=== PATIENT | female | born 1950 | race Caucasian/White ===

== ENCOUNTER 2016-11-29 10:29 | Emergency (ER) | payer BC, OTHER ==
[2016-11-29 10:37] VITALS: BP 125/57
--- NOTE | 2016-11-29 10:50 | ER Document Report ---
ED Medical Screen (RME) - General Stated Complaint: BACK PAIN Mode of Arrival: Ambulatory Information source: Patient Notes: Patient complains of low back pain, right lateral side of abdomen pain for the past 4 days. Patient reports nausea and last week that has resolved today. Patient reports cold symptoms that started last week with cough that continues today. Patient denies any urinary symptoms. hx: Chronic back pain I have greeted and performed a rapid initial assessment of this patient. A comprehensive ED assessment and evaluation of the patient, analysis of test results and completion of the medical decision making process will be conducted by additional ED providers. - Related Data Allergies/Adverse Reactions: Penicillins Allergy (Verified 11/29/16 10:47) Physical Exam - Vital signs Vitals: Temp Pulse Resp BP Pulse Ox 99.3 F 93 21 H 125/57 L 88 L 11/29/16 10:36 11/29/16 10:36 11/29/16 10:36 11/29/16 10:36 11/29/16 10:36 - Abdominal Tenderness: Tender - Right lateral side of abdomen Course - Vital Signs Vital signs: Temp Pulse Resp BP Pulse Ox 99.3 F 93 21 H 125/57 L 88 L 11/29/16 10:36 11/29/16 10:36 11/29/16 10:36 11/29/16 10:36 11/29/16 10:36
[2016-11-29 11:22] LABS: ABSOLUTE EOSINOPHILS # (AUTO) 0.1 10^3/uL (0.0-0.6); ABSOLUTE LYMPHOCYTES (AUTO) 0.8 10^3/uL (0.5-4.7); ABSOLUTE MONOCYTES (AUTO) 0.4 10^3/uL (0.1-1.4); ABSOLUTE NEUT (AUTO) 1.9 10^3/uL (1.7-8.2); BASOPHILS % (AUTO) 1.5 % (0-2); EOSINOPHILS % (AUTO) 1.6 % (0-6); HEMATOCRIT 40.6 % (36.0-47.0); HEMOGLOBIN 13.4 g/dL (12.0-15.5); HGB HCT DIFFERENCE -0.4; MEAN CORPUSCULAR HEMOGLOBIN 28.8 pg (27.0-33.4); MEAN CORPUSCULAR HGB CONC 32.9 g/dL (32.0-36.0); MEAN CORPUSCULAR VOLUME 87 fl (80-97); MONOCYTES % (AUTO) 12.9 % (3-13); RED BLOOD COUNT 4.65 10^6/uL (3.72-5.28); RED CELL DISTRIBUTION WIDTH 14.7 % (11.5-14.0); WHITE BLOOD COUNT 3.2 10^3/uL (4.0-10.5)
[2016-11-29 11:26] LABS: AMORPHOUS SEDIMENT,URINE TRACE /HPF; APPEARANCE,URINE TURBID; BILIRUBIN,URINE NEGATIVE (NEGATIVE); GLUCOSE, URINE NEGATIVE (NEGATIVE); KETONES,URINE NEGATIVE (NEGATIVE); LEUKOCYTE ESTERASE,URINE NEGATIVE (NEGATIVE); NITRITE,URINE NEGATIVE (NEGATIVE); PROTEIN,URINE NEGATIVE (NEGATIVE); UROBILINOGEN,URINE NEGATIVE mg/dL (<2.0)
[2016-11-29 11:32] LABS: ALANINE AMINOTRANSFERASE 48 U/L (9-52); ALBUMIN 4.1 g/dL (3.5-5.0); ALKALINE PHOSPHATASE 58 U/L (38-126); ANION GAP 11 (5-19); ASPARTATE AMINO TRANSFERASE 31 U/L (14-36); BILIRUBIN,TOTAL 0.5 mg/dL (0.2-1.3); BLOOD UREA NITROGEN 14 mg/dL (7-20); CALCIUM 8.9 mg/dL (8.4-10.2); CARBON DIOXIDE 27 mmol/L (22-30); CHLORIDE 98 mmol/L (98-107); CREATININE RESULT 0.83 mg/dL (0.52-1.25); GLUCOSE 123 mg/dL (75-110); LIPASE 21.4 U/L (23-300); POTASSIUM 4.4 mmol/L (3.6-5.0); SODIUM 135.6 mmol/L (137-145); TOTAL PROTEIN 6.6 g/dL (6.3-8.2)
[2016-11-29] MEDS ORDERED: CYCLOBENZAPRINE HCL 10 MG TABLET PO ONE (13:00)
[2016-11-29] MEDS ORDERED: ACETAMINOPHEN 325 MG TABLET PO ONE (13:00)
--- NOTE | 2016-11-29 13:03 | ER Document Report ---
ED General - General Chief Complaint: Abdominal Pain Stated Complaint: BACK PAIN Mode of Arrival: Ambulatory Notes: Patient is a 66-year-old female presents emergency Department complaining of cough, headache, fevers and chills and then nonoperative the past 3-4 weeks. She also admits to worsening low back pain and right flank pain for the past 4 days with associated nausea. She denies any urinary symptoms including hematuria. Has had normal bowel movements. Patient states she is a history of chronic back pain. PCP is Dr. Keane and states very. Past medical history significant for chronic low back pain, kidney stones, asthma, COPD, hypertension Current daily smoker TRAVEL OUTSIDE OF THE [place] IN LAST 30 DAYS: No - Related Data Allergies/Adverse Reactions: Penicillins Allergy (Verified 11/29/16 10:47) Past Medical History - General Information source: Patient - Social History Smoking Status: Current Every Day Smoker Chew tobacco use (# tins/day): No Frequency of alcohol use: None Drug Abuse: None Family History: Reviewed & Not Pertinent Patient has suicidal ideation: No Patient has homicidal ideation: No Renal/ Medical History: Denies: Hx Peritoneal Dialysis Review of Systems - Review of Systems Constitutional: No symptoms reported EENT: No symptoms reported Cardiovascular: No symptoms reported Respiratory: Cough Gastrointestinal: Nausea Genitourinary: No symptoms reported Female Genitourinary: No symptoms reported Musculoskeletal: See HPI Skin: No symptoms reported Hematologic/Lymphatic: No symptoms reported Neurological/Psychological: No symptoms reported Physical Exam - Vital signs Vitals: Temp Pulse Resp BP Pulse Ox 99.3 F 93 21 H 125/57 L 96 11/29/16 10:36 11/29/16 10:36 11/29/16 10:36 11/29/16 10:36 11/29/16 10:36 - Notes Notes: PHYSICAL EXAM GENERAL: Alert, interacts well. HEAD: Normocephalic, atraumatic. EYES: Pupils equal, round, and reactive to light. Extraocular movements intact. ENT: Oral mucosa moist, tongue midline. NECK: Full range of motion. Supple. Trachea midline. LUNGS: Clear to auscultation bilaterally, no wheezes, rales, or rhonchi. No respiratory distress. HEART: Regular rate and rhythm. No murmurs, gallops, or rubs. ABDOMEN: Soft, nondistended, nontender. No guarding, rebound, or rigidity.. Bowel sounds present in all 4 quadrants. EXTREMITIES: Moves all 4 extremities spontaneously. No edema, radial and dorsalis pedis pulses 2/4 bilaterally. No cyanosis. Back: Lumbar and thoracic paraspinous muscle tenderness with positive CVA tenderness on the right. NEUROLOGICAL: Alert and oriented x3. Normal speech. PSYCH: Normal affect, normal mood. SKIN: Warm, dry, normal turgor. No rashes or lesions noted. Course - Re-evaluation Re-evalutation: 11/29/16 14:17 Patient is a 66-year-old female presents emergency Department complaining of multitude of symptoms but with new onset right flank pain. She does have a history of chronic back pain and also has a history of renal stones. Workup was essentially negative but did reveal mild hematuria. Patient denies any urinary symptoms. Patient was given Tylenol and Flexeril which she states resolved her back pain. KUB reveals calcifications around the uterus or bladder been no evidence of stone. At this time patient feels that her symptoms are improved and she would like to go home. Patient is stable for discharge and can follow-up with her primary care provider - Vital Signs Vital signs: Temp Pulse Resp BP Pulse Ox 99.3 F 93 21 H 125/57 L 96 11/29/16 10:36 11/29/16 10:36 11/29/16 10:36 11/29/16 10:36 11/29/16 10:36 - Laboratory Result Diagrams: 11/29/16 11:00 11/29/16 11:00 Laboratory results interpreted by me: 11/29/16 11/29/16 11/29/16 11:00 11:00 11:00 WBC 3.2 L RDW 14.7 H Plt Count 109 L Sodium 135.6 L Glucose 123 H Lipase 21.4 L Urine Blood SMALL H - Diagnostic Test Radiology reviewed: Image reviewed, Reports reviewed Discharge - Discharge Clinical Impression: Back pain Qualifiers: Back pain location: low back pain Chronicity: acute Back pain laterality: right Sciatica presence: without sciatica Qualified Code(s): M54.5 - Low back pain Condition: Good Disposition: HOME, SELF-CARE Instructions: Acetaminophen, Stretching Exercises for the Back ([facility]) Additional Instructions: LOW BACK PAIN: Three out of every four people will have an episode of disabling back pain during their lifetime. Most commonly the pain is due to straining of the muscles and ligaments in the low back. Usual treatment includes: (1) Rest on a firm surface. Avoid lying on your stomach. (2) Ice pack the painful area. After a few days, gentle heat may be used intermittently to relax the area, or ice packs can be continued. (3) Medication may be needed -- muscle relaxers and antiinflammatory medicines are commonly used. (4) As the back improves, exercises are prescribed to strengthen the back and abdominal muscles. Your doctor will advise you on the proper care for your back at each stage in your recovery. You may be better in a few days -- or healing may take several weeks. If new symptoms of a "herniated disc" (radiation of pain, numbness, or tingling down the back of the leg or weakness in the leg) occur, you should be re-examined. Further testing may be necessary. MUSCLE RELAXERS: Muscle relaxing medications are usually prescribed for acute muscle spasm or injury to the neck and back. They are often combined with antiinflammatory pain medication for increased relief. You may stop the muscle relaxer when the pain and stiffness have improved. Start the medication again if spasms recur. Muscle relaxers may cause drowsiness, especially with the first dose. Do not operate machinery or drive while under the effects of the medication. Most muscle relaxers last up to 24 hours. Do not combine the medication with alcohol. ICE PACKS: Apply ice packs frequently against the painful area. Many different schedules are recommended, such as "20 minutes on, 20 minutes off" or "one hour ice, two hours rest." If you need to work, you may need to go longer between ice treatments. You should plan to have the area ice packed AT LEAST one fourth of the time. The ice should be applied over the wrap, tape, or splint, or over a layer of cloth -- not directly against the skin. Some ice bags have a built-in cloth and can be put directly on the skin. WARM PACKS: After approximately two days, apply gentle heat (such as a heating pad or hot water bottle) for about 20 to 30 minutes about every two hours -- at least four times daily. Warmth and elevation will help you make a more rapid recovery , and will ease the pain considerably. Do not use HOT heat, and never apply heat for longer than 30 minutes. The continuous heat can invisibly damage skin and muscles -- even when no burn is seen on the surface. Damaged muscles can make you MORE sore. FOLLOW-UP CARE: If you have been referred to a physician for follow-up care, call the physician s office for an appointment as you were instructed or within the next two days. If you experience worsening or a significant change in your symptoms, notify the physician immediately or return to the Emergency Department at any time for re-evaluation. Prescriptions: Cyclobenzaprine HCl [Flexeril 5 mg Tablet] 5 mg PO TIDP PRN #15 tablet PRN Reason: Forms: Smoking Cessation Education Referrals: LYNNE KEANE MD [Primary Care Provider] - Follow up as needed
== END 2016-11-29 14:53 | disposition home or self-care (01) ==
LOC: ER 10:29
DX: M54.5 Low back pain (principal); R10.9 Unspecified abdominal pain; M54.9 Dorsalgia, unspecified; R05 Cough; R51 Headache; R50.9 Fever, unspecified; F17.210 Nicotine dependence, cigarettes, uncomplicated
CPT/HCPCS: 36415; 71020; 74000; 80053; 81001; 83690; 85025; 99284

== ENCOUNTER 2017-01-10 16:35 | Emergency (ER) | payer BC ==
[2017-01-10] MEDS ORDERED: ONDANSETRON HCL INJ/PF 4 MG/2 ML SDV IV ONE (19:13)
[2017-01-10] MEDS ORDERED: FENTANYL CITRATE INJ/PF 100 MCG/2 ML AMPUL IV PRN (19:13)
[2017-01-10] MEDS ORDERED: NORMAL SALINE 1000 ML 1,000 ML IV ONE (19:13)
--- NOTE | 2017-01-10 19:58 | ER Document Report ---
ED General - General Chief Complaint: Abdominal Pain Stated Complaint: ABDOMINAL PAIN Notes: Patient is a 66-year-old female with past medical history of COPD, current every day smoker, history of a right ovarian mass with concern for malignancy who presents from the OB clinic with concerns of intermittent torsion of that right ovarian mass. She notes a dull, constant, throbbing pain to the right adnexa. States intermittently gets worse. Nothing seems to improve or worsen the pain. She has had associated nausea without vomiting. No vaginal bleeding or discharge. She denies any dysuria. TRAVEL OUTSIDE OF THE [place] IN LAST 30 DAYS: No - Related Data Allergies/Adverse Reactions: aspirin Allergy (Verified 01/10/17 16:45) Histamine H2 Inhibitors Allergy (Verified 01/10/17 16:45) morphine Allergy (Verified 01/10/17 16:45) Penicillins Allergy (Verified 01/10/17 16:44) Past Medical History - General Information source: Patient - Social History Smoking Status: Never Smoker Frequency of alcohol use: None Drug Abuse: None Lives with: Spouse/Significant other Family History: Reviewed & Not Pertinent Patient has suicidal ideation: No Patient has homicidal ideation: No Renal/ Medical History: Denies: Hx Peritoneal Dialysis Review of Systems - Review of Systems Notes: Constitutional: Negative for fever. HENT: Negative for sore throat. Eyes: Negative for visual changes. Cardiovascular: Negative for chest pain. Respiratory: Negative for shortness of breath. Gastrointestinal: Positive for abdominal pain, negative for vomiting or diarrhea. Genitourinary: Negative for dysuria. Musculoskeletal: Negative for back pain. Skin: Negative for rash. Neurological: Negative for headaches, weakness or numbness. 10 point ROS negative except as marked above and in HPI. Physical Exam - Vital signs Vitals: Temp Pulse Resp BP Pulse Ox 98.3 F 84 18 190/105 H 95 01/10/17 16:46 01/10/17 16:46 01/10/17 16:46 01/10/17 16:46 01/10/17 16:46 Interpretation: Hypertensive Notes: PHYSICAL EXAMINATION: GENERAL: Well-appearing, well-nourished and in no acute distress. HEAD: Atraumatic, normocephalic. EYES: Pupils equal round and reactive to light, extraocular movements intact, sclera anicteric, conjunctiva are normal. ENT: nares patent, oropharynx clear without exudates. Moist mucous membranes. NECK: Normal range of motion, supple without lymphadenopathy LUNGS: Breath sounds clear to auscultation bilaterally and equal. No wheezes rales or rhonchi. HEART: Regular rate and rhythm without murmurs ABDOMEN: Soft, mild right adnexal tenderness, normoactive bowel sounds. No guarding, no rebound. No masses appreciated. EXTREMITIES: Normal range of motion, no pitting or edema. No cyanosis. NEUROLOGICAL: No focal neurological deficits. Moves all extremities spontaneously and on command. PSYCH: Normal mood, normal affect. SKIN: Warm, Dry, normal turgor, no rashes or lesions noted. Course - Re-evaluation Re-evalutation: 01/10/17 19:54 Patient presents with right adnexal pain after being sent to us from the [facility] for concerns or right ovarian mass requiring surgery. Transfer is ready been arranged by Dr. Alston prior to me assess in this patient. At time of my evaluation patient does continue to complain of some right adnexal pain with associated nausea but denies any additional complaints or concerns. She does have focal right lower abdominal pain on exam without rebound or guarding. Labs were reobtained in the office and no further workup is indicated at this time and Dr. Alston is in agreement. She is scheduled for transfer to [facility]. Analgesia and antiemetics ordered. Pending transfer 2100-transport has arrived to transfer the patient to [facility]. She remained stable at this time. She is in acceptable condition for transfer - Vital Signs Vital signs: Temp Pulse Resp BP Pulse Ox 98.1 F 73 18 171/90 H 95 01/10/17 19:00 01/10/17 19:00 01/10/17 19:00 01/10/17 20:51 01/10/17 20:50 Discharge - Discharge Clinical Impression: Ovarian mass, right Condition: Good Disposition: [facility]
[2017-01-10 21:14] VITALS: BP 171/90
== END 2017-01-10 21:00 | disposition short-term general hospital (02) ==
LOC: ER 16:35
DX: N83.8 Other noninflammatory disorders of ovary, fallopian tube and broad ligament (principal); R10.9 Unspecified abdominal pain; J44.9 Chronic obstructive pulmonary disease, unspecified; F17.200 Nicotine dependence, unspecified, uncomplicated; R11.0 Nausea; Z88.0 Allergy status to penicillin; Z88.6 Allergy status to analgesic agent
CPT/HCPCS: 99285; 96361; 96374; 96375; J3010; J2405; J7030

== ENCOUNTER → 2018-11-29 | Outpatient (CLI) | payer BC, MEDICARE | LOC: LAB 13:00 | PROVIDERS: ATTEND Nurse Practitioner Family | DX: N30.01 Acute cystitis with hematuria (principal) | CPT/HCPCS: 87086; 87088; 87186 ==

== ENCOUNTER → 2019-01-20 | Outpatient (CLI) | payer BC, OTHER | LOC: OD 15:37 | PROVIDERS: ATTEND Nurse Practitioner Acute Care | DX: R30.0 Dysuria (principal) | CPT/HCPCS: 87086; 87088; 87186 ==

== ENCOUNTER 2019-06-30 04:39 | Observation (INO) | payer BC ==
[2019-06-30] MEDS ORDERED: LISINOPRIL 10 MG TABLET PO ONE (05:00)
--- NOTE | 2019-06-30 05:03 | ER Document Report ---
ED Medical Screen (RME) - General Chief Complaint: Chest Pain > 30 Stated Complaint: DYSPNEA/HYPERTENSION Time Seen by Provider: 06/30/19 04:51 Primary Care Provider: DIANE COLLIER NP [Primary Care Provider] - Follow up as needed Notes: 69-year-old female comes by EMS for chief complaint of difficulty breathing. She states she has had congestion, runny nose, and cough for the past few days, she states last night she was coughing so hard she could not breathe. She quit smoking 6 months ago, has a history of bronchitis/COPD, however she denies wheezing. She denies lower extremity swelling or history of CHF. She reports chest pain with cough. She is uncertain of fever. She was exposed to a family member with similar symptoms. Patient was found to be very hypertensive at 200 systolic, given 0.2 mg of clonidine by EMS, states that she did not take her lisinopril 40 mg over the past day. TRAVEL OUTSIDE OF THE [place] IN LAST 30 DAYS: No - Related Data Allergies/Adverse Reactions: aspirin Allergy (Verified 01/10/17 16:45) Histamine H2 Inhibitors Allergy (Verified 01/10/17 16:45) morphine Allergy (Verified 01/10/17 16:45) Penicillins Allergy (Verified 01/10/17 16:44) Past Medical History - Past Medical History Cardiac Medical History: Reports: Hx Hypertension Pulmonary Medical History: Reports: Hx Bronchitis Endocrine Medical History: Reports: Hx Diabetes Mellitus Type 2 Renal/ Medical History: Denies: Hx Peritoneal Dialysis Musculoskeltal Medical History: Reports Hx Arthritis Past Surgical History: Reports: Hx Orthopedic Surgery - right knee - Immunizations Hx Diphtheria, Pertussis, Tetanus Vaccination: Yes Physical Exam - Vital signs Vitals: Pulse 101 H 06/30/19 04:46 - Respiratory Breath sounds: Other - Decreased breath sounds, no rales, rhonchi, or wheezing. Occasional mild cough. Course - Re-evaluation Re-evalutation: Patient is congested, has tight cough, no wheezing, no tachypnea, no hypoxia. No obvious rales or lower extremity swelling on exam. Recently given clonidine, will be given her daily medication as well, work-up pending. I have greeted and performed a rapid initial assessment of this patient. A comprehensive ED assessment and evaluation of the patient, analysis of test results and completion of the medical decision making process will be conducted by additional ED providers. - Vital Signs Vital signs: Temp Pulse Resp BP Pulse Ox 98 F 101 H 18 212/131 H 96 06/30/19 04:49 06/30/19 04:46 06/30/19 04:49 06/30/19 04:49 06/30/19 04:49 Doctor's Discharge - Discharge Referrals: DIANE COLLIER NP [Primary Care Provider] - Follow up as needed
[2019-06-30 05:17] LABS: ABSOLUTE BASOPHILS # (AUTO) 0.1 10^3/uL (0.0-0.2); ABSOLUTE EOSINOPHILS # (AUTO) 0.1 10^3/uL (0.0-0.6); ABSOLUTE LYMPHOCYTES (AUTO) 3.1 10^3/uL (0.5-4.7); ABSOLUTE MONOCYTES (AUTO) 0.6 10^3/uL (0.1-1.4); BASOPHILS % (AUTO) 0.8 % (0-2); EOSINOPHILS % (AUTO) 1.4 % (0-6); HEMATOCRIT 42.8 % (36.0-47.0); HEMOGLOBIN 14.1 g/dL (12.0-15.5); LYMPHOCYTES % (AUTO) 34.9 % (13-45); MEAN CORPUSCULAR HEMOGLOBIN 27.7 pg (27.0-33.4); MEAN CORPUSCULAR VOLUME 84 fl (80-97); MONOCYTES % (AUTO) 6.3 % (3-13); PLATELET COUNT 198 10^3/uL (150-450); RED CELL DISTRIBUTION WIDTH 14.6 % (11.5-14.0); SEGMENTED NEUTROPHILS % (AUTO) 56.6 % (42-78); TOTAL CELLS COUNTED % (AUTO) 100 %; WHITE BLOOD COUNT 8.8 10^3/uL (4.0-10.5)
[2019-06-30 05:20] LABS: ALBUMIN 4.6 g/dL (3.5-5.0); ALKALINE PHOSPHATASE 86 U/L (38-126); ANION GAP 11 (5-19); ASPARTATE AMINO TRANSFERASE 35 U/L (14-36); BILIRUBIN,DIRECT 0.2 mg/dL (0.0-0.4); BILIRUBIN,TOTAL 0.5 mg/dL (0.2-1.3); BLOOD UREA NITROGEN 16 mg/dL (7-20); CALCIUM 9.8 mg/dL (8.4-10.2); CARBON DIOXIDE 29 mmol/L (22-30); CHLORIDE 97 mmol/L (98-107); GLUCOSE 174 mg/dL (75-110); TOTAL PROTEIN 7.6 g/dL (6.3-8.2)
[2019-06-30 05:32] LABS: NT PRO BNP 280 pg/mL (5-900)
[2019-06-30 05:33] LABS: TROPONIN I < 0.012 ng/mL
--- NOTE | 2019-06-30 06:02 | RADIOLOGY REPORT (SQ) ---
EXAM DESCRIPTION: XR CHEST 1 VIEW COMPLETED DATE/TME: 06/30/2019 04:59 CLINICAL HISTORY: 69 years, Female, shortness of breath COMPARISON: 11/29/2016 NUMBER OF VIEWS: One TECHNIQUE: AP view of the chest LIMITATIONS: None. FINDINGS: The lungs are clear. The heart is normal in size. There is no pneumothorax or pleural effusion. IMPRESSION: No acute cardiopulmonary abnormality copyright 2010 [employer]- All Rights Reserved
[2019-06-30] MEDS ORDERED: OXYCODONE-ACETAMINOPHEN 5-325 MG TABLET PO ONE (06:49)
--- NOTE | 2019-06-30 06:53 | ER Document Report ---
ED Cardiac - General Chief Complaint: Chest Pain > 30 Stated Complaint: DYSPNEA/HYPERTENSION Time Seen by Provider: 06/30/19 04:51 Primary Care Provider: DIANE COLLIER NP [NURSE PRACTITIONER] - Follow up as needed TRAVEL OUTSIDE OF THE [place] IN LAST 30 DAYS: No - HPI Notes: Patient is a 69-year-old female presents emergency department for evaluation of chest pain or difficulty breathing. She points to an area in her left chest, just lateral to the sternal border. She states is a sharp and stabbing pain. Nothing seems to make it better or worse. It started about 2 AM while she was sitting in a recliner watching television. She felt short of breath at onset, with some mild nausea. Patient does have a history of COPD, does not feel like she is wheezing. She denies any lower extremity edema. Currently she puts her pain at a 6 out of 10. Patient is a very poor historian. Patient's daughter states that she believes she may have dementia, but this has not been diagnosed. - Related Data Allergies/Adverse Reactions: aspirin Allergy (Verified 01/10/17 16:45) Histamine H2 Inhibitors Allergy (Verified 01/10/17 16:45) morphine Allergy (Verified 01/10/17 16:45) Penicillins Allergy (Verified 01/10/17 16:44) Home Medications: Patient unsure of any medication dosages. She takes metfo rmin, lisinopril, Klonopin, albuterol, Advair daily. Admits she regularly forgets to take some of her medications. Past Medical History - General Information source: Patient, Relative - Social History Smoking Status: Former Smoker Family History: Reviewed & Not Pertinent Patient has suicidal ideation: No Patient has homicidal ideation: No - Past Medical History Cardiac Medical History: Reports: Hx Hypertension Pulmonary Medical History: Reports: Hx Bronchitis Endocrine Medical History: Reports: Hx Diabetes Mellitus Type 2 Renal/ Medical History: Denies: Hx Peritoneal Dialysis Musculoskeletal Medical History: Reports Hx Arthritis Past Surgical History: Reports: Hx Orthopedic Surgery - right knee - Immunizations Hx Diphtheria, Pertussis, Tetanus Vaccination: Yes Review of Systems - Review of Systems Constitutional: No symptoms reported EENT: No symptoms reported Cardiovascular: See HPI Respiratory: See HPI Gastrointestinal: No symptoms reported Genitourinary: No symptoms reported Musculoskeletal: No symptoms reported Skin: No symptoms reported Neurological/Psychological: No symptoms reported Physical Exam - Vital signs Vitals: Pulse 101 H 06/30/19 04:46 - Notes Notes: Vital signs reviewed, please refer to chart. Head is normocephalic, atraumatic. Pupils equal round, reactive to light. Neck is supple without meningismus. Heart is regular rate and rhythm. Lungs are clear to auscultation bilaterally. Patient is point tender over the left ribs, just lateral to the sternal border, at approximately 6-7th ribs. Corresponding thoracic spine tenderness noted posteriorly. Abdomen is soft, nontender, normoactive bowel sounds throughout. Extremities without cyanosis, clubbing. Posterior calves are nontender. Peripheral pulses are equal. Skin is warm and dry. Patient is awake, alert, neurological exam is nonfocal. Course - Re-evaluation Re-evalutation: 06/30/19 06:52 Patient presents emergency department for evaluation of chest pain. She was initially seen and had orders as placed through triage. Laboratory investigations are entirely unremarkable. Imaging is unremarkable. Patient's pain seems to be reproducible, making it likely musculoskeletal. We did discuss the fact that she has risk factors for coronary artery disease and further testing is necessary. She voiced understanding. We also discussed the fact that she needs to take her regular medications as prescribed. She had been given clonidine in route, was given her normal dose of lisinopril here. We will order a delta troponin. I will treat her with some Percocet here. We will continue to monitor. 06/30/19 06:53 06/30/19 08:36 Notified by nursing that patient's troponin became positive. I went back in to see the patient. At this point she starts complaining to me of the pain in her left upper arm. She believes is from her IV, which is in her left AC. She describes it is a squeezing pain. She states she also has a similar pain around her left chest. On further questioning she states she has had pain like this in the past, but really cannot characterize it for me in any other way. She cannot tell me the circumstances surrounding that pain. I am concerned that this is anginal pain. I did reverify her allergy to aspirin. We will start her on a nitroglycerin drip and reassess for response. 06/30/19 09:31 Patient currently on 10 mics of nitroglycerin. She states her pain is completely unchanged. Patient is unfortunately allergic to both aspirin and morphine. IV fentanyl ordered, will continue to monitor. Repeat EKG shows a sinus mechanism at 80 bpm, no acute ST changes. 06/30/19 10:16 Patient currently chest pain-free. She refused fentanyl. Findings explained to the patient, as well as the need for her to stay in the hospital for further care. She voiced understanding. The patient was accepted by Dr. Champion for further care. - Vital Signs Vital signs: Temp Pulse Resp BP Pulse Ox 98.1 F 101 H 20 147/99 H 95 06/30/19 06:31 06/30/19 04:46 06/30/19 07:30 06/30/19 07:30 06/30/19 07:30 - Laboratory Result Diagrams: 06/30/19 04:15 06/30/19 04:15 Laboratory results interpreted by me: 06/30/19 06/30/19 06/30/19 04:15 04:15 08:55 RDW 14.6 H Chloride 97 L Glucose 174 H Urine Protein 30 H Urine Glucose (UA) >=500 H Urine Ketones 20 H - Diagnostic Test Radiology reviewed: Reports reviewed Radiology results interpreted by me: 06/30/19 06:53 Chest X-Ray 06/30/19 04:59 IMPRESSION: No acute cardiopulmonary abnormality copyright 2010 [employer]- All Rights Reserved - EKG Interpretation by Me Additional EKG results interpreted by me: 06/30/19 06:53 Sinus tachycardia with a rate of 106 bpm, PVC noted. Normal axis and intervals. Nonspecific ST changes, but no acute ST elevation concerning for PA. Critical Care Note - Critical Care Note Total time excluding time spent on procedures (mins): 30 Discharge - Discharge Clinical Impression: NSTEMI (non-ST elevated myocardial infarction) Condition: Stable Disposition: ADMITTED INPATIENT Admitting Provider: Akira (Hospitalist) Unit Admitted: IMCU Referrals: DIANE COLLIER NP [NURSE PRACTITIONER] - Follow up as needed
[2019-06-30] MEDS ORDERED: ACETAMINOPHEN 325 MG TABLET PO ONE (07:15)
[2019-06-30] MEDS ORDERED: ACETAMINOPHEN 325 MG TABLET ONE (07:47)
[2019-06-30] MEDS ORDERED: NITROGLYCERIN/D5W 50 MG/250 ML RTUINJ IV PRN (08:36)
[2019-06-30 09:25] LABS: APPEARANCE,URINE CLEAR; BILIRUBIN,URINE NEGATIVE (NEGATIVE); COLOR,URINE YELLOW; GLUCOSE, URINE >=500 mg/dL (NEGATIVE); KETONES,URINE 20 mg/dL (NEGATIVE); LEUKOCYTE ESTERASE,URINE NEGATIVE (NEGATIVE); NITRITE,URINE NEGATIVE (NEGATIVE); PROTEIN,URINE 30 mg/dL (NEGATIVE); URINE SPECIFIC GRAVITY 1.022; UROBILINOGEN,URINE NEGATIVE mg/dL (<2.0)
[2019-06-30] MEDS ORDERED: FENTANYL CITRATE INJ/PF 100 MCG/2 ML AMPUL IV ONE (09:31)
[2019-06-30] MEDS ORDERED: NITROGLYCERIN 0.4 MG/TAB 25 TAB/BOTTLE SL PRN (10:39)
[2019-06-30] MEDS ORDERED: DEXTROSE 5%-NORMAL SALINE 1,000 ML IV PRN (10:40)
[2019-06-30] MEDS ORDERED: TEMAZEPAM 7.5 MG CAPSULE PO PRN (10:40)
[2019-06-30] MEDS ORDERED: ONDANSETRON HCL INJ/PF 4 MG/2 ML SDV IV PRN (10:40)
[2019-06-30] MEDS ORDERED: GLUCAGON,HUMAN RECOMB 1 MG INJ SUBCUT PRN (10:40)
[2019-06-30] MEDS ORDERED: DEXTROSE 40% GEL 15 GM TUBE PO PRN ×4 (10:40→11:51)
[2019-06-30] MEDS ORDERED: DEXTROSE 50%-WATER 25 GM/50 ML DISP.SYRIN IV PRN ×4 (10:40→11:51)
[2019-06-30] MEDS ORDERED: ENOXAPARIN SODIUM INJ 40 MG/0.4 ML DISP.SYRIN SUBCUT SCH ×2 (10:45→18:00)
[2019-06-30] MEDS: METOPROLOL TARTRATE 25 MG TABLET PO SCH ×2 (10:47→22:19)
[2019-06-30] MEDS: CLOPIDOGREL BISULFATE 75 MG TABLET PO SCH (10:47)
[2019-06-30] MEDS: ENOXAPARIN SODIUM INJ 80 MG/0.8 ML DISP.SYRIN SUBCUT SCH ×2 (10:51→22:21)
--- NOTE | 2019-06-30 11:03 | EKG REPORT ---
SEVERITY:- NORMAL ECG - SINUS RHYTHM : Confirmed by: Kishan Huber 30-Jun-2019 11:01:33
[2019-06-30] MEDS ORDERED: METOPROLOL TARTRATE PF/INJ 5 MG/5 ML SDV IV PRN (11:14)
--- NOTE | 2019-06-30 11:49 | PDOC H&P ---
History of Present Illness Admission Date/PCP: 06/30/19 10:24 LYNNE KEANE MD History of Present Illness: ERROL MAN is a 69 year old female past medical history of diabetes, emp hysema, hypertension, presented to ED complaining of chest pain. As per patient she has been nonproductive coughing for the last several days " I got it from my grandkids there coughing too", at 2 AM last night she was using her albuterol, started coughing, suddenly developed chest pain, had a panic attack, called EMS. Chest pain is very nonspecific, as well as sharp, stabbing, then turned into a burning sensation and eventually feeling pressure, pain was more epigastric radiating to the left side, and radiating to the left upper extremity, pain was constant until she was given nitroglycerin by EMS. In ED she was found to have BP of >200s, was given lisinopril which improved her pressure, EKG no acute changes, CBC CMP WNL, initial troponin negative but the repeat troponin came back 0.13. Hospitalist was consulted for admission. Past Medical History Cardiac Medical History: Reports: Hypertension Pulmonary Medical History: Reports: Bronchitis Endocrine Medical History: Reports: Diabetes Mellitus Type 2 Musculoskeltal Medical History: Reports: Arthritis Past Surgical History Past Surgical History: Reports: Orthopedic Surgery - right knee Social History Smoking Status: Former Smoker Family History Family History: Reviewed & Not Pertinent Parental Family History Reviewed: Yes Children Family History Reviewed: Yes Sibling(s) Family History Reviewed.: Yes Medication/Allergy Home Medications: Fluticasone/Salmeterol [Advair 250-50 Diskus 14 Dose/Diskus] 1 puff IH Q12 06/30/19 Lisinopril [Prinivil 40 mg Tablet] 40 mg PO DAILY 06/30/19 Apixaban [Eliquis 5 mg Tablet] 5 mg PO BID 30 Days #60 tablet 07/03/19 Atorvastatin Calcium [Lipitor 40 mg Tablet] 40 mg PO QHS 30 Days #30 tablet 07/03/19 Levalbuterol Tartrate [Xopenex Hfa] 15 gm IH Q6 30 Days #2 hfa.aer.ad 07/03/19 Metformin HCl [Glucophage] 1,000 mg PO BID 30 Days #60 tablet 07/03/19 RX: Amlodipine Besylate [Norvasc 10 mg Tablet] 10 mg PO DAILY 30 Days #30 tablet 07/03/19 RX: Metoprolol Tartrate [Lopressor 50 mg Tablet] 50 mg PO BID 30 Days #60 tablet 07/03/19 Allergies/Adverse Reactions: aspirin Allergy (Verified 01/10/17 16:45) Histamine H2 Inhibitors Allergy (Verified 01/10/17 16:45) morphine Allergy (Verified 01/10/17 16:45) Penicillins Allergy (Verified 01/10/17 16:44) Review of Systems Review of Systems: as per hpi Physical Exam Vital Signs: Temp Pulse Resp BP Pulse Ox 98.1 F 101 H 20 147/99 H 95 06/30/19 06:31 06/30/19 04:46 06/30/19 07:30 06/30/19 07:30 06/30/19 07:30 Intake & Output 06/29/19 06/30/19 07/01/19 06:59 06:59 06:59 Intake Total 3 Balance 3 Weight 77.111 kg General appearance: PRESENT: no acute distress, well-developed, well-nourished Respiratory exam: PRESENT: clear to auscultation cally. ABSENT: rales, rhonchi, wheezes Cardiovascular exam: PRESENT: RRR. ABSENT: diastolic murmur, rubs, systolic murmur Pulses: PRESENT: normal dorsalis pedis pul GI/Abdominal exam: PRESENT: normal bowel sounds, soft. ABSENT: distended, guarding, mass, organolmegaly, rebound, tenderness Musculoskeletal exam: PRESENT: tenderness - Tenderness over left chest and epigastrium. Neurological exam: PRESENT: alert, awake, oriented to person, oriented to place, oriented to time, oriented to situation, CN II-XII grossly intact. ABSENT: motor sensory deficit Psychiatric exam: PRESENT: anxious Results Laboratory Results: 06/30/19 04:15 06/30/19 04:15 06/30/19 06/30/19 06/30/19 04:15 04:15 08:55 WBC 8.8 RBC 5.10 Hgb 14.1 Hct 42.8 MCV 84 MCH 27.7 MCHC 33.0 RDW 14.6 H Plt Count 198 Seg Neutrophils % 56.6 Sodium 137.4 Potassium 4.0 Chloride 97 L Carbon Dioxide 29 Anion Gap 11 BUN 16 Creatinine 0.79 Est GFR ( Amer) > 60 Glucose 174 H Calcium 9.8 Total Bilirubin 0.5 AST 35 Alkaline Phosphatase 86 Total Protein 7.6 Albumin 4.6 Urine Color YELLOW Urine Appearance CLEAR Urine pH 5.0 Ur Specific [place] 1.022 Urine Protein 30 H Urine Glucose (UA) >=500 H Urine Ketones 20 H Urine Blood NEGATIVE Urine Nitrite NEGATIVE Ur Leukocyte Esterase NEGATIVE Urine WBC (Auto) 3 Urine RBC (Auto) 1 06/30/19 06/30/19 04:15 07:23 Troponin I < 0.012 0.134 NT-Pro-B Natriuret Pep 280 Impressions: Chest X-Ray 06/30/19 04:59 IMPRESSION: No acute cardiopulmonary abnormality copyright 2010 [employer]- All Rights Reserved Assessment and Plan - Diagnosis (1) Chest pain Qualifiers: Chest pain type: precordial pain Qualified Code(s): R07.2 - Precordial pain Is this a current diagnosis for this admission?: Yes Plan: Poor historian. Reports very nonspecific chest pain. She is reporting stabbing, sharp and pressure-like chest pain at the same time. Relieved by nitroglycerin but at the same time worsened by movement and coughing. Exquisitely tender over the left parasternal and epigastric area. Chest pain could very well skeletal and elevated troponins could be due to hypertensive emergency, however patient is high risk for CAD due to underlying diabetes, hypertension and smoking history of 50 years. Admit to telemetry, trend troponins, antiplatelets, low molecular weight heparin, beta-blockers, ROSE, statins, nuclear stress test. Cardiology consulted. (2) Hypertensive emergency Is this a current diagnosis for this admission?: Yes Plan: History of hypertension, patient reporting noncompliance. Was noted to have a blood pressure of more than 200s on admission. In Ed was given 1 dose of lisinopril and started on nitro drip with blood pressure improving to 140s. Admit to telemetry, monitor vitals, beta-blockers, ROSE, PRN hydralazine. (3) Elevated troponin Is this a current diagnosis for this admission?: Yes Plan: Isac NSTEMI type II due demand mismatch Plan as per #1. 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 History of noncompliance. Diabetic diet, sliding scale insulin, pre-meal insulin, long-acting insulin, A ccu-Chek, hypoglycemia protocol. We will order A1c. (5) COPD (chronic obstructive pulmonary disease) Qualifiers: COPD type: emphysema Is this a current diagnosis for this admission?: Yes Plan: Not on home O2. Pulmonary toileting, incentive spirometry, LMA, LABA, ICS, flutter valve. Outpatient pulmonary follow-up.
[2019-06-30] MEDS ORDERED: GLUCAGON,HUMAN RECOMB 1 MG INJ IM PRN (11:51)
[2019-06-30 11:52] LABS: INTERNATIONAL RATION (INR) 0.92; PROTHROMBIN TIME 12.4 SEC (11.4-15.4)
[2019-06-30 12:10] LABS: ANION GAP 12 (5-19); BLOOD UREA NITROGEN 16 mg/dL (7-20); CALCIUM 9.2 mg/dL (8.4-10.2); CARBON DIOXIDE 23 mmol/L (22-30); CHLORIDE 96 mmol/L (98-107); CHOLESTEROL 217.73 mg/dL (0-200); GLUCOSE 241 mg/dL (75-110); POTASSIUM 4.5 mmol/L (3.6-5.0); TRIGLYCERIDES 166 mg/dL (<150)
[2019-06-30 12:11] LABS: URINE AMPHETAMINES SCREEN NEGATIVE; URINE BARBITURATES SCREEN NEGATIVE; URINE BENZODIAZEPINES SCREEN NEGATIVE; URINE COCAINE SCREEN NEGATIVE; URINE MARIJUANA (THC) SCREEN NEGATIVE; URINE METHADONE SCREEN NEGATIVE; URINE PHENCYCLIDINE SCREEN NEGATIVE
[2019-06-30 12:21] LABS: DIRECT LDL 193 mg/dL (<100)
[2019-06-30 12:26] LABS: VLDL CHOLESTEROL 33.2 mg/dL (10-31)
[2019-06-30] MEDS: GUAIFENESIN/D-METHORPHAN (200-20 MG) SYRUP 10 ML PO SCH ×2 (13:45→17:35)
[2019-06-30 14:10] LABS: FREE T3 3.61 pg/mL (2.77-5.27); FREE T4 (FREE THYROXINE) 0.96 ng/dL (0.78-2.19)
[2019-06-30 14:24] LABS: THYROID STIMULATING HORMONE 0.08 uIU/mL (0.47-4.68)
[2019-06-30] MEDS: NITROGLYCERIN 2% OINTMENT 1 GM PACKET TP SCH (17:35)
[2019-06-30] MEDS: DOCUSATE SODIUM 100 MG CAPSULE PO SCH (17:35)
[2019-06-30] MEDS: INSULIN LISPRO 100 UNIT/ML 3 ML VIAL SUBCUT SCH ×2 (18:30→22:23)
[2019-06-30] MEDS: ATORVASTATIN CALCIUM 40 MG TABLET PO SCH (22:19)
[2019-06-30] MEDS: IPRATROPIUM/ALBUTEROL 0.5-2.5 MG/3 ML AMPUL NEB PRN (22:46)
[2019-07-01] MEDS: NITROGLYCERIN 2% OINTMENT 1 GM PACKET TP SCH ×2 (00:41→05:53)
[2019-07-01] MEDS: NORMAL SALINE 1000 ML 1,000 ML IV PRN ×2 (00:45→17:41)
[2019-07-01] MEDS: PANTOPRAZOLE SODIUM 40 MG TABLET.DR PO SCH (05:47)
[2019-07-01 05:59] LABS: ABSOLUTE EOSINOPHILS # (AUTO) 0.1 10^3/uL (0.0-0.6); ABSOLUTE LYMPHOCYTES (AUTO) 1.9 10^3/uL (0.5-4.7); ABSOLUTE MONOCYTES (AUTO) 0.3 10^3/uL (0.1-1.4); ABSOLUTE NEUT (AUTO) 3.1 10^3/uL (1.7-8.2); BASOPHILS % (AUTO) 0.7 % (0-2); EOSINOPHILS % (AUTO) 2.4 % (0-6); HEMATOCRIT 39.1 % (36.0-47.0); HEMOGLOBIN 12.9 g/dL (12.0-15.5); LYMPHOCYTES % (AUTO) 33.9 % (13-45); MEAN CORPUSCULAR HEMOGLOBIN 27.6 pg (27.0-33.4); MEAN CORPUSCULAR HGB CONC 32.9 g/dL (32.0-36.0); MEAN CORPUSCULAR VOLUME 84 fl (80-97); MONOCYTES % (AUTO) 6.3 % (3-13); PLATELET COUNT 140 10^3/uL (150-450); RED BLOOD COUNT 4.68 10^6/uL (3.72-5.28); RED CELL DISTRIBUTION WIDTH 14.5 % (11.5-14.0); SEGMENTED NEUTROPHILS % (AUTO) 56.7 % (42-78); TOTAL CELLS COUNTED % (AUTO) 100 %; WHITE BLOOD COUNT 5.5 10^3/uL (4.0-10.5)
[2019-07-01] MEDS: HYDRALAZINE HCL INJ/PF 20 MG/1 ML SDV IV PRN ×3 (06:21→21:18)
[2019-07-01] MEDS: INSULIN LISPRO 100 UNIT/ML 3 ML VIAL SUBCUT SCH ×4 (07:44→22:02)
[2019-07-01] MEDS: IPRATROPIUM/ALBUTEROL 0.5-2.5 MG/3 ML AMPUL NEB PRN ×2 (08:45→22:24)
--- NOTE | 2019-07-01 09:08 | EKG REPORT ---
SEVERITY:- NORMAL ECG - SINUS RHYTHM : Confirmed by: Kishan Huber 01-Jul-2019 09:07:56
[2019-07-01] MEDS: ENOXAPARIN SODIUM INJ 80 MG/0.8 ML DISP.SYRIN SUBCUT SCH ×2 (09:29→21:18)
[2019-07-01 09:37] LABS: ANION GAP 11 (5-19); BLOOD UREA NITROGEN 16 mg/dL (7-20); CALCIUM 8.9 mg/dL (8.4-10.2); CARBON DIOXIDE 25 mmol/L (22-30); CHLORIDE 100 mmol/L (98-107); GLUCOSE 242 mg/dL (75-110); POTASSIUM 3.9 mmol/L (3.6-5.0)
[2019-07-01] MEDS: LISINOPRIL 10 MG TABLET PO SCH (09:37)
[2019-07-01] MEDS: DOCUSATE SODIUM 100 MG CAPSULE PO SCH ×2 (09:37→17:43)
[2019-07-01] MEDS: CLOPIDOGREL BISULFATE 75 MG TABLET PO SCH (09:37)
[2019-07-01] MEDS: GUAIFENESIN/D-METHORPHAN (200-20 MG) SYRUP 10 ML PO SCH ×3 (09:38→17:43)
[2019-07-01] MEDS: METOPROLOL TARTRATE 25 MG TABLET PO SCH (09:38)
--- NOTE | 2019-07-01 11:05 | PDOC PROGRESS REPORT ---
Subjective Progress Note for:: 07/01/19 Subjective:: ERROL MAN is a 69 year old female past medical history of diabetes, emphysema, hypertension, presented to ED complaining of chest pain. As per patient she has been nonproductive coughing for the last several days " I got it from my grandkids there coughing too", at 2 AM last night she was using her albuterol, started coughing, suddenly developed chest pain, had a panic attack, called EMS. Chest pain is very nonspecific, as well as sharp, stabbing, then turned into a burning sensation and eventually feeling pressure, pain was more epigastric radiating to the left side, and radiating to the left upper extremity, pain was constant until she was given nitroglycerin by EMS. In ED she was found to have BP of >200s, was given lisinopril which improved her pressure, EKG no acute changes, CBC CMP WNL, initial troponin negative but the repeat troponin came back 0.13. Hospitalist was consulted for admission. 07/01/2019. No acute events overnight. Patient's chest pain has resolved, BP WNL, pending nuclear stress test as patient had had breakfast already. Pending cardiology consult. Patient comfortably sitting in bed, in no apparent distress, anxious about her chest pain, denies any fever, chills, nausea, vomiting, diarrhea, constipation or any urinary symptoms. Of note patient is very tender on the left side on palpation. Reason For Visit: CHEST PAIN,ELEVATED TROPS Physical Exam Vital Signs: Temp Pulse Resp BP Pulse Ox 98.3 F 77 16 141/64 H 95 07/01/19 07:23 07/01/19 07:23 07/01/19 07:23 07/01/19 07:23 07/01/19 07:23 Intake & Output 06/30/19 07/01/19 07/02/19 06:59 06:59 06:59 Intake Total 570 Balance 570 Weight 85.4 kg General appearance: PRESENT: morbidly obese Head exam: PRESENT: atraumatic, normocephalic Respiratory exam: PRESENT: clear to auscultation cally. ABSENT: rales, rhonchi, wheezes Cardiovascular exam: PRESENT: RRR, other - ttp to left chest. ABSENT: diastolic murmur, rubs, systolic murmur GI/Abdominal exam: PRESENT: normal bowel sounds, soft. ABSENT: distended, guarding, mass, organolmegaly, rebound, tenderness Extremities exam: PRESENT: full ROM. ABSENT: calf tenderness, clubbing, pedal edema Neurological exam: PRESENT: alert, awake, oriented to person, oriented to place, oriented to time, oriented to situation, CN II-XII grossly intact. ABSENT: motor sensory deficit Results Laboratory Results: 07/01/19 05:15 07/01/19 08:53 06/30/19 06/30/19 06/30/19 11:34 11:34 11:34 WBC RBC Hgb Hct MCV MCH MCHC RDW Plt Count Seg Neutrophils % Sodium 131.3 L Potassium 4.5 Chloride 96 L Carbon Dioxide 23 Anion Gap 12 BUN 16 Creatinine 0.64 Est GFR ( Amer) > 60 Glucose 241 H Calcium 9.2 Magnesium Cancelled 1.6 Triglycerides Cancelled 166 H Cholesterol Cancelled 217.73 H LDL Cholesterol Direct Cancelled 193 H VLDL Cholesterol Cancelled 33.2 H HDL Cholesterol Cancelled 37 L TSH 0.08 L Free T4 0.96 Free T3 pg/mL 3.61 07/01/19 07/01/19 05:15 08:53 WBC 5.5 RBC 4.68 Hgb 12.9 Hct 39.1 MCV 84 MCH 27.6 MCHC 32.9 RDW 14.5 H Plt Count 140 L Seg Neutrophils % 56.7 Sodium 135.6 L Potassium 3.9 Chloride 100 Carbon Dioxide 25 Anion Gap 11 BUN 16 Creatinine 0.78 Est GFR ( Amer) > 60 Glucose 242 H Calcium 8.9 Magnesium Triglycerides Cholesterol LDL Cholesterol Direct VLDL Cholesterol HDL Cholesterol TSH Free T4 Free T3 pg/mL 06/30/19 06/30/19 06/30/19 04:15 07:23 11:34 Troponin I < 0.012 0.134 0.261 NT-Pro-B Natriuret Pep 280 06/30/19 07/01/19 17:28 05:15 Troponin I 0.331 0.205 NT-Pro-B Natriuret Pep Impressions: Chest X-Ray 06/30/19 04:59 IMPRESSION: No acute cardiopulmonary abnormality copyright 2011 [employer]- All Rights Reserved Assessment and Plan - Diagnosis (1) Chest pain Qualifiers: Chest pain type: precordial pain Qualified Code(s): R07.2 - Precordial pain Is this a current diagnosis for this admission?: Yes Plan: Resolved. Left chest tenderness to palpation. Troponins 0.012, 0.134, 0.261, 0.331, 0.205 respectively. Poor historian. Reports very nonspecific chest pain on admission. She is reporting stabbing, sharp and pressure-like chest pain at the same time. Relieved by nitroglycerin but at the same time worsened by movement and coughing. Exquisitely tender over the left parasternal and epigastric area. Chest pain could very well skeletal and elevated troponins could be due to hypertensive emergency, however patient is high risk for CAD due to underlying diabetes, hypertension and smoking history of 50 years. Continue telemetry, trend troponins, antiplatelets, low molecular weight heparin, beta-blockers, ROSE, statins, nuclear stress test. Cardiology consulted. Pending recommendations. (2) Hypertensive emergency Is this a current diagnosis for this admission?: Yes Plan: Significant improvement. Euvolemic and normotensive. History of hypertension, patient reporting noncompliance. Was noted to have a blood pressure of more than 200s on admission. In Ed was given 1 dose of lisinopril and started on nitro drip with blood pressure improving to 140s. Counseled on medication adherence. Continue to monitor vitals, beta-blockers ROSE PRN hydralazine. (3) Elevated troponin Is this a current diagnosis for this admission?: Yes Plan: Isac NSTEMI type II due demand mismatch Plan as per #1. 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 Hemoglobin A1c 9.0. Takes metformin at home. History of noncompliance. Diabetic diet, sliding scale insulin, pre-meal insulin, long-acting insulin, Accu-Chek, hypoglycemia protocol. (5) COPD (chronic obstructive pulmonary disease) Qualifiers: COPD type: emphysema Is this a current diagnosis for this admission?: Yes Plan: Not on home O2. Former smoker. History of 50 years PPD smoking. Quit 6 months ago. Pulmonary toileting, incentive spirometry, LMA, LABA, ICS, flutter valve. Outpatient pulmonary follow-up.
[2019-07-01] MEDS: ATORVASTATIN CALCIUM 40 MG TABLET PO SCH (21:18)
[2019-07-01] MEDS: ACETAMINOPHEN 325 MG TABLET PO PRN (21:19)
[2019-07-01] MEDS ORDERED: CARVEDILOL 12.5 MG TABLET PO SCH (22:00)
[2019-07-02 04:54] LABS: ABSOLUTE EOSINOPHILS # (AUTO) 0.1 10^3/uL (0.0-0.6); ABSOLUTE LYMPHOCYTES (AUTO) 0.6 10^3/uL (0.5-4.7); ABSOLUTE MONOCYTES (AUTO) 0.3 10^3/uL (0.1-1.4); ABSOLUTE NEUT (AUTO) 3.3 10^3/uL (1.7-8.2); BASOPHILS % (AUTO) 0.7 % (0-2); EOSINOPHILS % (AUTO) 1.3 % (0-6); HEMOGLOBIN 12.3 g/dL (12.0-15.5); LYMPHOCYTES % (AUTO) 14.9 % (13-45); MEAN CORPUSCULAR HEMOGLOBIN 27.6 pg (27.0-33.4); MEAN CORPUSCULAR HGB CONC 33.2 g/dL (32.0-36.0); MEAN CORPUSCULAR VOLUME 83 fl (80-97); MONOCYTES % (AUTO) 5.9 % (3-13); PLATELET COUNT 138 10^3/uL (150-450); RED BLOOD COUNT 4.45 10^6/uL (3.72-5.28); RED CELL DISTRIBUTION WIDTH 14.9 % (11.5-14.0); SEGMENTED NEUTROPHILS % (AUTO) 77.2 % (42-78); TOTAL CELLS COUNTED % (AUTO) 100 %; WHITE BLOOD COUNT 4.3 10^3/uL (4.0-10.5)
[2019-07-02 05:14] LABS: ALBUMIN 3.7 g/dL (3.5-5.0); ALKALINE PHOSPHATASE 68 U/L (38-126); ANION GAP 7 (5-19); ASPARTATE AMINO TRANSFERASE 22 U/L (14-36); BILIRUBIN,DIRECT 0.1 mg/dL (0.0-0.4); BILIRUBIN,TOTAL 0.6 mg/dL (0.2-1.3); BLOOD UREA NITROGEN 12 mg/dL (7-20); CALCIUM 8.7 mg/dL (8.4-10.2); CARBON DIOXIDE 27 mmol/L (22-30); CHLORIDE 101 mmol/L (98-107); GLUCOSE 160 mg/dL (75-110); POTASSIUM 3.6 mmol/L (3.6-5.0); TOTAL PROTEIN 6.5 g/dL (6.3-8.2)
[2019-07-02] MEDS: PANTOPRAZOLE SODIUM 40 MG TABLET.DR PO SCH (05:36)
[2019-07-02] MEDS: INSULIN LISPRO 100 UNIT/ML 3 ML VIAL SUBCUT SCH ×4 (07:13→22:46)
[2019-07-02] MEDS: HYDRALAZINE HCL INJ/PF 20 MG/1 ML SDV IV PRN (09:00)
[2019-07-02] MEDS: ENOXAPARIN SODIUM INJ 80 MG/0.8 ML DISP.SYRIN SUBCUT SCH ×2 (09:09→22:30)
[2019-07-02] MEDS: LISINOPRIL 10 MG TABLET PO SCH ×2 (09:15→14:52)
[2019-07-02] MEDS: CLOPIDOGREL BISULFATE 75 MG TABLET PO SCH (09:15)
[2019-07-02] MEDS: ACETAMINOPHEN 325 MG TABLET PO PRN (09:15)
[2019-07-02] MEDS: GUAIFENESIN/D-METHORPHAN (200-20 MG) SYRUP 10 ML PO SCH ×3 (09:16→17:27)
[2019-07-02] MEDS: DOCUSATE SODIUM 100 MG CAPSULE PO SCH ×2 (09:18→17:27)
[2019-07-02] MEDS ORDERED: DILTIAZEM HCL/D5W 125 MG/125 ML RTUINJ IV PRN ×2 (10:56→11:27)
[2019-07-02] MEDS ORDERED: LORAZEPAM INJ 2 MG/1 ML VIAL IV PRN (11:14)
--- NOTE | 2019-07-02 11:37 | PDOC PROGRESS REPORT ---
Subjective Progress Note for:: 07/02/19 Subjective:: ERROL MAN is a 69 year old female past medical history of diabetes, emphysema, hypertension, presented to ED complaining of chest pain. As per patient she has been nonproductive coughing for the last several days " I got it from my grandkids there coughing too", at 2 AM last night she was using her albuterol, started coughing, suddenly developed chest pain, had a panic attack, called EMS. Chest pain is very nonspecific, as well as sharp, stabbing, then turned into a burning sensation and eventually feeling pressure, pain was more epigastric radiating to the left side, and radiating to the left upper extremity, pain was constant until she was given nitroglycerin by EMS. In ED she was found to have BP of >200s, was given lisinopril which improved her pressure, EKG no acute changes, CBC CMP WNL, initial troponin negative but the repeat troponin came back 0.13. Hospitalist was consulted for admission. 07/01/2019. No acute events overnight. Patient's chest pain has resolved, BP WNL, pending nuclear stress test as patient had had breakfast already. Pending cardiology consult. Patient comfortably sitting in bed, in no apparent distress, anxious about her chest pain, denies any fever, chills, nausea, vomiting, diarrhea, constipation or any urinary symptoms. Of note patient is very tender on the left side on palpation. 07/02/2019. Saw patient this morning before undergoing the stress test, no acute events overnight, patient's chest pain has resolved however she was very anxious about the results of nuclear test. Denies any fever, chills, nausea, vomiting, diarrhea, constipation or any urinary symptoms. unfortunately patient went into A. fib RVR while undergoing nuclear stress test. Was transferred to [facility]. Reason For Visit: CHEST PAIN,ELEVATED TROPS Physical Exam Vital Signs: Temp Pulse Resp BP Pulse Ox 99.5 F 94 21 H 169/79 H 95 07/02/19 08:22 07/02/19 08:22 07/02/19 08:22 07/02/19 08:22 07/02/19 08:22 Intake & Output 07/01/19 07/02/19 07/03/19 06:59 06:59 06:59 Intake Total 570 1979 Balance 570 1980 Weight 85.4 kg 82.9 kg General appearance: PRESENT: no acute distress, well-developed, well-nourished Respiratory exam: PRESENT: clear to auscultation cally. ABSENT: rales, rhonchi, wheezes Cardiovascular exam: PRESENT: RRR. ABSENT: diastolic murmur, rubs, systolic murmur Pulses: PRESENT: normal dorsalis pedis pul GI/Abdominal exam: PRESENT: normal bowel sounds, soft. ABSENT: distended, guarding, mass, organolmegaly, rebound, tenderness Extremities exam: PRESENT: full ROM. ABSENT: calf tenderness, clubbing, pedal edema Neurological exam: PRESENT: alert, awake, oriented to person, oriented to place, oriented to time, oriented to situation, CN II-XII grossly intact. ABSENT: motor sensory deficit Psychiatric exam: PRESENT: anxious Results Laboratory Results: 07/02/19 04:38 07/02/19 04:38 07/02/19 07/02/19 04:38 04:38 WBC 4.3 RBC 4.45 Hgb 12.3 Hct 37.0 MCV 83 MCH 27.6 MCHC 33.2 RDW 14.9 H Plt Count 138 L Seg Neutrophils % 77.2 Sodium 135.0 L Potassium 3.6 Chloride 101 Carbon Dioxide 27 Anion Gap 7 BUN 12 Creatinine 0.68 Est GFR ( Amer) > 60 Glucose 160 H Calcium 8.7 Total Bilirubin 0.6 AST 22 Alkaline Phosphatase 68 Total Protein 6.5 Albumin 3.7 06/30/19 06/30/19 06/30/19 04:15 07:23 11:34 Troponin I < 0.012 0.134 0.261 NT-Pro-B Natriuret Pep 280 06/30/19 07/01/19 07/01/19 17:28 05:15 11:40 Troponin I 0.331 0.205 0.124 NT-Pro-B Natriuret Pep Impressions: Chest X-Ray 06/30/19 04:59 IMPRESSION: No acute cardiopulmonary abnormality copyright 2011 [employer]- All Rights Reserved Assessment and Plan - Diagnosis (1) Atrial fibrillation Qualifiers: Atrial fibrillation type: paroxysmal Qualified Code(s): I48.0 - Paroxysmal atrial fibrillation Is this a current diagnosis for this admission?: Yes Plan: Patient developed A. fib RVR during nuclear stress test. Transfer to [facility], started on Cardizem drip, and therapeutic Lovenox. Cardiology following. Will note recommendation. (2) Chest pain Qualifiers: Chest pain type: precordial pain Qualified Code(s): R07.2 - Precordial pain Is this a current diagnosis for this admission?: Yes Plan: Resolved. Left chest tenderness to palpation. Troponins 0.012, 0.134, 0.261, 0.331, 0.205 respectively. Poor historian. Reports very nonspecific chest pain on admission. She is reporting stabbing, sharp and pressure-like chest pain at the same time. Relieved by nitroglycerin but at the same time worsened by movement and coughing. Exquisitely tender over the left parasternal and epigastric area. Chest pain could very well skeletal and elevated troponins could be due to hypertensive emergency, however patient is high risk for CAD due to underlying diabetes, hypertension and smoking history of 50 years. Continue telemetry, trend troponins, antiplatelets, low molecular weight heparin, beta-blockers, ROSE, statins. Stress test today. Cardiology consulted. Pending recommendations. (3) Hypertensive emergency Is this a current diagnosis for this admission?: Yes Plan: Significant improvement. Euvolemic and normotensive. History of hypertension, patient reporting noncompliance. Was noted to have a blood pressure of more than 200s on admission. In Ed was given 1 dose of lisinopril and started on nitro drip with blood pressure improving to 140s. Counseled on medication adherence. Continue to monitor vitals, beta-blockers ROSE PRN hydralazine. 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 Hemoglobin A1c 9.0. Takes metformin at home. History of noncompliance. Diabetic diet, sliding scale insulin, pre-meal insulin, long-acting insulin, Accu-Chek, hypoglycemia protocol. (6) COPD (chronic obstructive pulmonary disease) Qualifiers: COPD type: emphysema Is this a current diagnosis for this admission?: Yes Plan: Not on home O2. Former smoker. History of 50 years PPD smoking. Quit 6 months ago. Pulmonary toileting, incentive spirometry, LMA, LABA, ICS, flutter valve. Out patient pulmonary follow-up.
[2019-07-02] MEDS ORDERED: REGADENOSON INJ 0.4 MG/5 ML DISP.SYRIN IV ONE (13:27)
[2019-07-02] MEDS ORDERED: METOPROLOL TARTRATE PF/INJ 5 MG/5 ML SDV IV ONE (13:27)
[2019-07-02] MEDS ORDERED: VERAPAMIL HCL INJ/PF 5 MG/2 ML SDV IV ONE (13:27)
[2019-07-02] MEDS ORDERED: NITROGLYCERIN 0.4 MG/TAB 25 TAB/BOTTLE ONE (13:27)
[2019-07-02 14:36] LABS: ANION GAP 10 (5-19); BLOOD UREA NITROGEN 12 mg/dL (7-20); CALCIUM 8.7 mg/dL (8.4-10.2); CARBON DIOXIDE 24 mmol/L (22-30); CHLORIDE 99 mmol/L (98-107); GLUCOSE 217 mg/dL (75-110); POTASSIUM 3.7 mmol/L (3.6-5.0)
[2019-07-02] MEDS ORDERED: ENALAPRILAT DIHYDRATE INJ/PF 2.5 MG/2 ML SDV IV PRN (16:27)
[2019-07-02] MEDS: IPRATROPIUM/ALBUTEROL 0.5-2.5 MG/3 ML AMPUL NEB PRN (17:02)
[2019-07-02] MEDS: IPRATROPIUM/ALBUTEROL 0.5-2.5 MG/3 ML AMPUL NEB SCH (20:38)
[2019-07-02] MEDS ORDERED: (PENDING PHARMACY ID) (Fluticasone/Salmeterol 1 PUFF) IH SCH (22:00)
[2019-07-02] MEDS ORDERED: METOPROLOL TARTRATE 25 MG TABLET PO SCH (22:00)
[2019-07-02] MEDS: AMLODIPINE BESYLATE 2.5 MG TABLET PO SCH (22:30)
[2019-07-02] MEDS: ATORVASTATIN CALCIUM 40 MG TABLET PO SCH (22:30)
[2019-07-02] MEDS: METOPROLOL TARTRATE 50 MG TABLET PO SCH (22:33)
--- NOTE | 2019-07-02 22:36 | PDOC CONSULTATION ---
Consultation-Blank Consultation: CARDIOLOGY CONSULTATION by Dr. Xin Mosqueda. Patient seen on 07/02/2019. The patient was seen during the time of her stress test and subsequently was seen in consultation at 3 PM on 07/02/2019. 60 minutes spent on this patient with more than 50% of time spent on direct patient care. CONSULT REQUESTING PHYSICIAN: Dr. Nazario [facility] hospitalist physician REASON FOR CONSULTATION: Patient with chest pain and paroxysmal atrial fibrillation., And hypertensive crisis. HISTORY PRESENT ILLNESS: The whole chart was reviewed. Patient was admitted with symptoms of acute exacerbation of COPD with shortness of breath and dry cough. When she came in her blood pressure was severely elevated. Although she complained of palpitations there was no evidence of atrial fibrillation on in the [facility] admission records. The patient's troponin was mildly elevated and has trended down. In view of the patient's risk factors for coronary artery disease the patient had a IV Lexiscan Cardiolite stress test done today. The patient initially was in sinus rhythm but after the injection of Lexiscan the patient went into atrial fibrillation with rapid ventricular response with a heart rate in the 160s. Her systolic blood pressure was also very elevated in the 200s. The patient was given verapamil 5 mg IV push. She was also given Lopressor 5 mg IV push and subsequently the patient was started on a Cardizem drip after the patient got a bolus of 10 mg of Cardizem. With all these medications and prior to starting the drip the patient converted to sinus rhythm and subsequently had her stress images done. Review of the stress test shows that there is no reversible ischemia, and there is no evidence of myocardial infarction. There is no history of PND. The patient does have orthopnea. There is no leg edema. History of intermittent palpitations suspect paroxysms of atrial fibrillation. The there is no history of chronic kidney disease. There is no prior history of congestive heart failure. At present the patient appears to be stable and his shortness of breath is much improved. She remains in sinus rhythm in the [facility]. She has a history of hypertension and diabetes mellitus. No history of thyroid disease. She quit smoking 7 months ago. Past Medical History Cardiac Medical History: Reports: Hypertension. History of palpitation. At present. No prior documented history of atrial fibrillation. No prior history of congestive heart failure. No prior history of coronary artery disease, [place] or anginal symptoms. Pulmonary Medical History: Reports: Bronchitis. She has COPD. There is no history of sleep apnea. Endocrine Medical History: Reports: Diabetes Mellitus Type 2. No history of thyroid disease. 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 No history of headaches migraines or seizures. GENITOURINARY: No history of chronic kidney disease. No history of recurrent UTIs. Past Surgical History Past Surgical History: Reports: Orthopedic Surgery - right knee Social History Smoking Status: Former Smoker Family History Family History: Reviewed & Not Pertinent Parental Family History Reviewed: Yes Children Family History Reviewed: Yes Sibling(s) Family History Reviewed.: Yes Medication/Allergy Allergies/Adverse Reactions: aspirin Allergy (Verified 01/10/17 16:45) Histamine H2 Inhibitors Allergy (Verified 01/10/17 16:45) morphine Allergy (Verified 01/10/17 16:45) Penicillins Allergy (Verified 01/10/17 16:44) Current Medications Generic Name Dose Route Start Last Admin Trade Name Freq PRN Reason Stop Dose Admin Acetaminophen 325 mg 06/30/19 10:40 07/02/19 09:15 Tylenol 325 Mg Tablet PO 07/30/19 10:39 325 mg Q4HP PRN Administration FEVER >101 Albuterol 2 puff 07/03/19 10:00 Proair Hfa Inhalation Aerosol 8.5 Gm Mdi IH 08/02/19 09:59 DAILY [facility] Albuterol/Ipratropium 3 ml 06/30/19 10:40 07/02/19 17:02 Duoneb 3 Ml Ampul NEB 07/30/19 10:39 3 ml [id number] PRN Administration SHORTNESS OF BREATH Albuterol/Ipratropium 3 ml 07/02/19 20:00 07/02/19 20:38 Duoneb 3 Ml Ampul NEB 08/01/19 19:59 Not Given [id number] SARAH Amlodipine Besylate 2.5 mg 07/02/19 22:00 Norvasc 2.5 Mg Tablet PO 08/01/19 21:59 Q12 SARAH Atorvastatin Calcium 40 mg 06/30/19 22:00 07/01/19 21:18 Lipitor 40 Mg Tablet PO 07/30/19 21:59 40 mg QHS SARAH Administration Clopidogrel Bisulfate 75 mg 06/30/19 11:00 07/02/19 09:15 Plavix 75 Mg Tablet PO 07/30/19 10:59 75 mg DAILY SARAH Administration Dextrose 12.5 gm 06/30/19 11:51 Dextrose Inj 50% Syringe (25 Gm/50 Ml) IV 07/30/19 11:50 PRN PRN FOR BG 50-69 IN ALERT PATIENT Protocol Dextrose 25 gm 06/30/19 11:51 Dextrose Inj 50% Syringe (25 Gm/50 Ml) IV 07/30/19 11:50 PRN PRN PER PROTOCOL Protocol Docusate Sodium 100 mg 06/30/19 18:00 07/02/19 17:27 Colace 100 Mg Capsule PO 07/30/19 17:59 Not Given BID SARAH Enalaprilat 2.5 mg 07/02/19 16:27 Vasotec Inj/Pf 2.5 Mg/2 Ml Sdv IV 08/01/19 16:26 Q6HP PRN SBP>160 Enoxaparin Sodium 70 mg 06/30/19 11:00 07/02/19 09:09 Lovenox Inj 80 Mg/0.8 Ml Disp.Syrin SUBCUT 07/30/19 10:59 Not Given Q12 SARAH Fluticasone/Vilanterol 1 inh 07/03/19 10:00 Breo 200-25 Mcg Ellipta 14 Dose/Dpi IH 08/02/19 09:59 DAILY SARAH Glucagon 1 mg 06/30/19 11:51 Glucagen Inj 1 Mg Vial IM 07/30/19 11:50 PRN PRN Evaluate for BG < 70 Protocol Glucose 15 gm 06/30/19 11:51 Glutose 40% Gel 15 Gm Tube PO 07/30/19 11:50 PRN PRN FOR BG 50-69 IN ALERT PATIENT Protocol Glucose 30 gm 06/30/19 11:51 Glutose 40% Gel 15 Gm Tube PO 07/30/19 11:50 PRN PRN FOR BG < 50 IN ALERT PATIENT Protocol Guaifenesin/Dextromethorphan 10 ml 06/30/19 14:00 07/02/19 17:27 Robitussin-Dm Syrup 10 Ml Udcup PO 07/30/19 13:59 10 ml TID SARAH Administration Sodium Chloride 1,000 mls @ 60 mls/hr 06/30/19 13:58 07/01/19 17:41 Nacl 0.9% 1000 Ml Iv Soln IV 07/30/19 13:57 60 mls/hr CONTINUOUS PRN Administration THIS MED IS NOT "PRN" Diltiazem HCl 125 mg in 125 mls @ 2.5 mls/hr 07/02/19 11:27 07/02/19 16:16 Cardizem Rtu Inj 125 Mg-D5w 125 Ml Premix IV 08/01/19 10:55 2.5 mls/hr CONTINUOUS PRN 2.5 mls/hr THIS MED IS NOT "PRN" Administration Protocol Insulin Human Lispro 0 - 12 unit 06/30/19 16:00 07/02/19 17:27 Humalog Insulin 100 Unit/1 Ml 3 Ml Vial SUBCUT 07/30/19 15:59 4 unit ACHS SARAH Administration Protocol Lisinopril 40 mg 07/02/19 10:00 07/02/19 14:52 Prinivil 10 Mg Tablet PO 08/01/19 09:59 40 mg DAILY SARAH Administration Lorazepam 1 mg 07/02/19 11:14 Ativan Inj 2 Mg/1 Ml Vial IV 07/09/19 11:13 Q4HP PRN ANXIETY/AGITATION Metoprolol Tartrate 2.5 mg 06/30/19 11:14 Lopressor Inj/Pf 5 Mg/5 Ml Sdv IV 07/30/19 11:13 Q6HP PRN Give For Hr > [130] Metoprolol Tartrate 50 mg 07/02/19 22:00 Lopressor 25 Mg Tablet PO 08/01/19 21:59 Q12 SARAH Nitroglycerin 1 tab 06/30/19 10:39 Nitrostat 0.4 Mg (1/150 Gr) Tabs 25/Bottle SL 07/30/19 10:38 Q5MP PRN FOR CHEST PAIN Ondansetron HCl 4 mg 06/30/19 10:40 Zofran Inj/Pf 4 Mg/2 Ml Sdv IV 07/30/19 10:39 Q4HP PRN FOR NAUSEA/VOMITING Pantoprazole Sodium 40 mg 07/01/19 06:00 07/02/19 05:[address] Tablet PO 07/31/19 05:59 Not Given Q6AM SARAH Temazepam 7.5 mg 06/30/19 10:40 Restoril 7.5 Mg Capsule PO 07/07/19 10:39 HSP PRN SLEEP OR INSOMNIA Discontinued Medications Generic Name Dose Route Start Last Admin Trade Name Deborah PRN Reason Stop Dose Admin Acetaminophen 975 mg 06/30/19 07:15 06/30/19 07:19 Tylenol 325 Mg Tablet PO 06/30/19 07:16 975 mg NOW ONE Administration Acetaminophen Confirm 06/30/19 07:47 06/30/19 08:12 Tylenol 325 Mg Tablet Administered 06/30/19 07:48 Not Given Dose 325 mg .ROUTE .STK-MED ONE Carvedilol 12.5 mg 07/01/19 22:00 07/01/19 21:18 Coreg 12.5 Mg Tablet PO 07/31/19 21:59 12.5 mg Q12 SARAH Administration Dextrose 12.5 gm 06/30/19 10:40 Dextrose Inj 50% Syringe (25 Gm/50 Ml) IV 07/30/19 10:39 PRN PRN FOR BG 50-69 IN ALERT PATIENT Protocol Dextrose 25 gm 06/30/19 10:40 Dextrose Inj 50% Syringe (25 Gm/50 Ml) IV 07/30/19 10:39 PRN PRN See Label Comments Protocol Enoxaparin Sodium 40 mg 06/30/19 10:45 Lovenox Inj 40 Mg/0.4 Ml Disp.Syrin SUBCUT 07/30/19 10:44 DAILY [facility] Enoxaparin Sodium 70 mg 06/30/19 18:00 Lovenox Inj 40 Mg/0.4 Ml Disp.Syrin SUBCUT 07/30/19 17:59 BID [facility] Fentanyl Citrate 100 mcg 06/30/19 09:31 06/30/19 09:56 Sublimaze Inj/Pf 100 Mcg/2 Ml Ampule IV 06/30/19 09:32 Not Given NOW ONE Glucagon 1 mg 06/30/19 10:40 Glucagen Inj 1 Mg Vial SUBCUT 07/30/19 10:39 PRN PRN Evaluate for BG < 70 Protocol Glucose 15 gm 06/30/19 10:40 Glutose 40% Gel 15 Gm Tube PO 07/30/19 10:39 PRN PRN For BG 50-69 in Alert Patient Protocol Glucose 30 gm 06/30/19 10:40 Glutose 40% Gel 15 Gm Tube PO 07/30/19 10:39 PRN PRN FOR BG < 50 IN ALERT PATIENT Protocol Hydralazine HCl 10 mg 06/30/19 14:19 07/02/19 09:00 Apresoline Inj/Pf 20 Mg/1 Ml Sdv IV 07/30/19 14:18 10 mg Q3HP PRN Administration Give For Sbp > [150] Nitroglycerin/Dextrose 50 mg in 250 mls @ 0 mls/hr 06/30/19 08:36 06/30/19 17:40 Ntg Rtu 50 Mg/D5w 250 Ml Iv Premix Bottle IV 07/30/19 08:35 Infused CONTINUOUS PRN Titration THIS MED IS NOT "PRN" Protocol Titrate Dextrose/Sodium Chloride 1,000 mls @ 80 mls/hr 06/30/19 10:40 D5ns 1000 Ml Iv Soln IV 07/30/19 10:39 CONTINUOUS PRN THIS MED IS NOT "PRN" Diltiazem HCl 125 mg in 125 mls @ 0 mls/hr 07/02/19 10:56 Cardizem Rtu Inj 125 Mg-D5w 125 Ml Premix IV 08/01/19 10:55 CONTINUOUS PRN THIS MED IS NOT "PRN" Protocol Titrate Lisinopril 40 mg 06/30/19 05:00 06/30/19 05:06 Prinivil 10 Mg Tablet PO 06/30/19 05:01 40 mg NOW ONE Administration Lisinopril 20 mg 07/01/19 10:00 07/02/19 09:15 Prinivil 10 Mg Tablet PO 07/31/19 09:59 20 mg DAILY SARAH Administration Lisinopril 40 mg 07/03/19 10:00 Prinivil 10 Mg Tablet PO 08/02/19 09:59 DAILY SARAH Metoprolol Tartrate 12.5 mg 06/30/19 11:00 07/01/19 09:38 Lopressor 25 Mg Tablet PO 07/30/19 10:59 12.5 mg Q12 SARAH Administration Metoprolol Tartrate 25 mg 07/02/19 22:00 Lopressor 25 Mg Tablet PO 08/01/19 21:59 Q12 SARAH Metoprolol Tartrate 5 mg 07/02/19 13:27 Lopressor Inj/Pf 5 Mg/5 Ml Sdv IV 07/02/19 13:28 .STK-MED ONE Nitroglycerin 0.5 gm 06/30/19 18:00 07/01/19 05:53 Nitrol 2% Ointment 1gm Packet TP 07/30/19 17:59 0.5 gm Q6 SARAH Administration Nitroglycerin 25 tab 07/02/19 13:27 Nitrostat 0.4 Mg (1/150 Gr) Tabs 25/Bottle .ROUTE 07/02/19 13:28 .STK-MED ONE Oxycodone/Acetaminophen 1 tab 06/30/19 06:49 06/30/19 07:16 Percocet 5-325 Mg Tablet PO 06/30/19 06:50 Not Given NOW ONE Regadenoson 0.4 mg 07/02/19 13:27 Lexiscan Inj 0.4 Mg/5 Ml Disp.Syrin IV 07/02/19 13:28 .STK-MED ONE Verapamil HCl 5 mg 07/02/19 13:27 Calan Inj/Pf 5 Mg/2 Ml Sdv IV 07/02/19 13:28 .STK-MED ONE Review of Systems Review of Systems: constitutional: There is no fever chills or Reiger's. Complains of generalized fatigue and generalized weakness. HEAD: No history of headaches or head injury. EYES: No history of amblyopia diplopia no history of amaurosis fugax. EARS: No history of hearing loss. No history of tinnitus. NOSE: No history of hayfever. No history of nosebleeds. MOUTH: No history of altered taste sensation. No history of ulcers in the mouth. THROAT no history of odynophagia or dysphagia. No recurrent sore throats. SKIN: No history of skin cancer or psoriasis. No pruritus or allergic discoloration of the skin. NECK: No history of neck pain no history of neck swelling. LUNGS: History of shortness of breath secondary to acute exacerbation of COPD. Has cough which is nonproductive. No hemoptysis. No history of pulmonary embolism. No history of sleep apnea. CARDIAC: History of palpitations present. This is the first documented evidence of patient having paroxysmal atrial fibrillation. History of hypertension present. No history of coronary artery disease. Patient is elevated troponin I secondary to supply demand mismatch/type II [place]. No definite events of non-ST elevation [place]. No history of congestive heart failure. No history of PND. Patient has orthopnea. There is no leg edema. There is no syncope. GI: No recent GI bleed. History of GERD present. No history of altered bowel movements. MUSCULOSKELETAL: History of arthritis present. No history of collagen vascular disease. GENITOURINARY: No history of hematuria pyuria or dysuria. No history of chronic kidney disease. 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 No history of headaches migraines or seizures. PSYCHIATRIC: No history of anxiety or depression. No suicidal ideation. No homicidal ideation. VASCULAR: No history of calf or buttock claudication. No history of DVT. HEMATOLOGICAL: No history of bleeding diathesis or clotting disorders. PHYSICAL EXAMINATION: The patient is slightly overweight. At present in no acute distress. She appears to be older than his stated age, and appears to be chronically ill. Selected Entries 07/02/19 15:22 Temperature 98.5 F Temperature Axillary Source Pulse Rate 81 Respiratory 18 Rate BP Location Right Arm BP Position Supine O2 Sat by Pulse 94 Oximetry Oxygen Delivery Room Air Method HEAD: Head is atraumatic and normocephalic. EYES: Pupils are equal round regular reactive to light accommodation. Extraocular movements are normal, there is no conjunctival pallor, and no scleral icterus. EARS: Tympanic membranes are intact external auditory canals are clear. NOSE: There is no inflammation of the nasal mucous membrane there is no deviated nasal septum. MOUTH: Mucous membranes of mouth and tongue are moist, there is no ulcers in the mouth or tongue, and no bleeding from the gums. THROAT: There is no redness of the oropharynx, no exudate seen. SKIN: There is no petechia or ecchymosis. There is no rashes or lesions. NECK: Supple. There is no JVD. Carotids are equal there is no bruit. There is no lymphadenopathy. There is no goiter. Trachea central LUNGS: There is diminished air entry and prolonged expiration. Clear to auscultation bilaterally, no wheezes, rales or rhonchi. On percussion there is hyperresonance although there is no chest wall tenderness HEART: S1 and S2 are heard. S1 is of normal intensity, there is no S3 or S4 gallops. There is a systolic murmur the left sternal border and the apex. There is no rub. ABDOMEN: Normoactive bowel sounds, soft, nontender, no masses, no rebound, no guarding. There is no hepatosplenomegaly. EXTREMITIES: Femorals are slightly diminished. There is no femoral bruits. Leg pulses are diminished. There is no pedal edema. There is no DVT or cellulitis. There is no cyanosis or clubbing. There is no calf tenderness. NEUROLOGICAL the patient is awake alert oriented 3 with no focal deficits. PSYCHIATRIC: The patient judgment and insight are intact his affect is normal. Labs- Entire Visit 06/30/19 06/30/19 06/30/19 04:15 04:15 04:15 WBC 8.8 RBC 5.10 Hgb 14.1 Hct 42.8 MCV 84 MCH 27.7 MCHC 33.0 RDW 14.6 H Plt Count 198 Lymph % (Auto) 34.9 [place] % (Auto) 6.3 Eos % (Auto) 1.4 Baso % (Auto) 0.8 Absolute Neuts (auto) 5.0 Absolute Lymphs (auto) 3.1 Absolute Monos (auto) 0.6 Absolute Eos (auto) 0.1 Absolute Basos (auto) 0.1 Seg Neutrophils % 56.6 PT INR Sodium 137.4 Potassium 4.0 Chloride 97 L Carbon Dioxide 29 Anion Gap 11 BUN 16 Creatinine 0.79 Est GFR ( Amer) > 60 Est GFR (MDRD) Non-Af > 60 Glucose 174 H POC Glucose Hemoglobin A1c % Calcium 9.8 Magnesium Total Bilirubin 0.5 Direct Bilirubin 0.2 Neonat Total Bilirubin Not Reportable Neonat Direct Bilirubin Not Reportable Neonat Indirect Bili Not Reportable AST 35 ALT 41 Alkaline Phosphatase 86 Troponin I < 0.012 NT-Pro-B Natriuret Pep 280 Total Protein 7.6 Albumin 4.6 Triglycerides Cholesterol LDL Cholesterol Direct VLDL Cholesterol VLDL Cholesterol, Calc HDL Cholesterol TSH Free T4 Free T3 pg/mL Urine Color Urine Appearance Urine pH Ur Specific [place] Urine Protein Urine Glucose (UA) Urine Ketones Urine Blood Urine Nitrite Urine Bilirubin Urine Urobilinogen Ur Leukocyte Esterase Urine WBC (Auto) Urine RBC (Auto) Urine Bacteria (Auto) Squamous Epi Cells Auto Urine Mucus (Auto) Urine Ascorbic Acid Urine Opiates Screen Urine Methadone Screen Ur Barbiturates Screen Ur Phencyclidine Scrn Ur Amphetamines Screen U Benzodiazepines Scrn Urine Cocaine Screen U Marijuana (THC) Screen 06/30/19 06/30/19 06/30/19 04:15 04:15 07:23 WBC RBC Hgb Hct MCV MCH MCHC RDW Plt Count Lymph % (Auto) [place] % (Auto) Eos % (Auto) Baso % (Auto) Absolute Neuts (auto) Absolute Lymphs (auto) Absolute Monos (auto) Absolute Eos (auto) Absolute Basos (auto) Seg Neutrophils % PT 12.4 INR 0.92 Sodium Potassium Chloride Carbon Dioxide Anion Gap BUN Creatinine Est GFR ( Amer) Est GFR (MDRD) Non-Af Glucose POC Glucose Hemoglobin A1c % 9.0 H Calcium Magnesium Total Bilirubin Direct Bilirubin Neonat Total Bilirubin Neonat Direct Bilirubin Neonat Indirect Bili AST ALT Alkaline Phosphatase Troponin I 0.134 NT-Pro-B Natriuret Pep Total Protein Albumin Triglycerides Cholesterol LDL Cholesterol Direct VLDL Cholesterol VLDL Cholesterol, Calc HDL Cholesterol TSH Free T4 Free T3 pg/mL Urine Color Urine Appearance Urine pH Ur Specific [place] Urine Protein Urine Glucose (UA) Urine Ketones Urine Blood Urine Nitrite Urine Bilirubin Urine Urobilinogen Ur Leukocyte Esterase Urine WBC (Auto) Urine RBC (Auto) Urine Bacteria (Auto) Squamous Epi Cells Auto Urine Mucus (Auto) Urine Ascorbic Acid Urine Opiates Screen Urine Methadone Screen Ur Barbiturates Screen Ur Phencyclidine Scrn Ur Amphetamines Screen U Benzodiazepines Scrn Urine Cocaine Screen U Marijuana (THC) Screen 06/30/19 06/30/19 06/30/19 08:55 08:55 11:34 WBC RBC Hgb Hct MCV MCH MCHC RDW Plt Count Lymph % (Auto) [place] % (Auto) Eos % (Auto) Baso % (Auto) Absolute Neuts (auto) Absolute Lymphs (auto) Absolute Monos (auto) Absolute Eos (auto) Absolute Basos (auto) Seg Neutrophils % PT INR Sodium Potassium Chloride Carbon Dioxide Anion Gap BUN Creatinine Est GFR ( Amer) Est GFR (MDRD) Non-Af Glucose POC Glucose Hemoglobin A1c % Calcium Magnesium Total Bilirubin Direct Bilirubin Neonat Total Bilirubin Neonat Direct Bilirubin Neonat Indirect Bili AST ALT Alkaline Phosphatase Troponin I NT-Pro-B Natriuret Pep Total Protein Albumin Triglycerides Cholesterol LDL Cholesterol Direct VLDL Cholesterol VLDL Cholesterol, Calc HDL Cholesterol TSH 0.08 L Free T4 0.96 Free T3 pg/mL 3.61 Urine Color YELLOW Urine Appearance CLEAR Urine pH 5.0 Ur Specific [place] 1.022 Urine Protein 30 H Urine Glucose (UA) >=500 H Urine Ketones 20 H Urine Blood NEGATIVE Urine Nitrite NEGATIVE Urine Bilirubin NEGATIVE Urine Urobilinogen NEGATIVE Ur Leukocyte Esterase NEGATIVE Urine WBC (Auto) 3 Urine RBC (Auto) 1 Urine Bacteria (Auto) TRACE Squamous Epi Cells Auto 1 Urine Mucus (Auto) RARE Urine Ascorbic Acid NEGATIVE Urine Opiates Screen UNCONFIRMED POSITIVE Urine Methadone Screen NEGATIVE Ur Barbiturates Screen NEGATIVE Ur Phencyclidine Scrn NEGATIVE Ur Amphetamines Screen NEGATIVE U Benzodiazepines Scrn NEGATIVE Urine Cocaine Screen NEGATIVE U Marijuana (THC) Screen NEGATIVE 06/30/19 06/30/19 06/30/19 11:34 11:34 11:34 WBC RBC Hgb Hct MCV MCH MCHC RDW Plt Count Lymph % (Auto) [place] % (Auto) Eos % (Auto) Baso % (Auto) Absolute Neuts (auto) Absolute Lymphs (auto) Absolute Monos (auto) Absolute Eos (auto) Absolute Basos (auto) Seg Neutrophils % PT INR Sodium 131.3 L Potassium 4.5 Chloride 96 L Carbon Dioxide 23 Anion Gap 12 BUN 16 Creatinine 0.64 Est GFR ( Amer) > 60 Est GFR (MDRD) Non-Af > 60 Glucose 241 H POC Glucose Hemoglobin A1c % Calcium 9.2 Magnesium Cancelled 1.6 Total Bilirubin Direct Bilirubin Neonat Total Bilirubin Neonat Direct Bilirubin Neonat Indirect Bili AST ALT Alkaline Phosphatase Troponin I 0.261 NT-Pro-B Natriuret Pep Total Protein Albumin Triglycerides Cancelled 166 H Cholesterol Cancelled 217.73 H LDL Cholesterol Direct Cancelled 193 H VLDL Cholesterol Cancelled 33.2 H VLDL Cholesterol, Calc Cancelled HDL Cholesterol Cancelled 37 L TSH Free T4 Free T3 pg/mL Urine Color Urine Appearance Urine pH Ur Specific [place] Urine Protein Urine Glucose (UA) Urine Ketones Urine Blood Urine Nitrite Urine Bilirubin Urine Urobilinogen Ur Leukocyte Esterase Urine WBC (Auto) Urine RBC (Auto) Urine Bacteria (Auto) Squamous Epi Cells Auto Urine Mucus (Auto) Urine Ascorbic Acid Urine Opiates Screen Urine Methadone Screen Ur Barbiturates Screen Ur Phencyclidine Scrn Ur Amphetamines Screen U Benzodiazepines Scrn Urine Cocaine Screen U Marijuana (THC) Screen 06/30/19 06/30/19 06/30/19 12:05 16:37 17:28 WBC RBC Hgb Hct MCV MCH MCHC RDW Plt Count Lymph % (Auto) [place] % (Auto) Eos % (Auto) Baso % (Auto) Absolute Neuts (auto) Absolute Lymphs (auto) Absolute Monos (auto) Absolute Eos (auto) Absolute Basos (auto) Seg Neutrophils % PT INR Sodium Potassium Chloride Carbon Dioxide Anion Gap BUN Creatinine Est GFR ( Amer) Est GFR (MDRD) Non-Af Glucose POC Glucose 215 H 213 H Hemoglobin A1c % Calcium Magnesium Total Bilirubin Direct Bilirubin Neonat Total Bilirubin Neonat Direct Bilirubin Neonat Indirect Bili AST ALT Alkaline Phosphatase Troponin I 0.331 NT-Pro-B Natriuret Pep Total Protein Albumin Triglycerides Cholesterol LDL Cholesterol Direct VLDL Cholesterol VLDL Cholesterol, Calc HDL Cholesterol TSH Free T4 Free T3 pg/mL Urine Color Urine Appearance Urine pH Ur Specific [place] Urine Protein Urine Glucose (UA) Urine Ketones Urine Blood Urine Nitrite Urine Bilirubin Urine Urobilinogen Ur Leukocyte Esterase Urine WBC (Auto) Urine RBC (Auto) Urine Bacteria (Auto) Squamous Epi Cells Auto Urine Mucus (Auto) Urine Ascorbic Acid Urine Opiates Screen Urine Methadone Screen Ur Barbiturates Screen Ur Phencyclidine Scrn Ur Amphetamines Screen U Benzodiazepines Scrn Urine Cocaine Screen U Marijuana (THC) Screen 06/30/19 07/01/19 07/01/19 22:07 05:15 05:15 WBC 5.5 RBC 4.68 Hgb 12.9 Hct 39.1 MCV 84 MCH 27.6 MCHC 32.9 RDW 14.5 H Plt Count 140 L Lymph % (Auto) 33.9 [place] % (Auto) 6.3 Eos % (Auto) 2.4 Baso % (Auto) 0.7 Absolute Neuts (auto) 3.1 Absolute Lymphs (auto) 1.9 Absolute Monos (auto) 0.3 Absolute Eos (auto) 0.1 Absolute Basos (auto) 0.0 Seg Neutrophils % 56.7 PT INR Sodium Potassium Chloride Carbon Dioxide Anion Gap BUN Creatinine Est GFR ( Amer) Est GFR (MDRD) Non-Af Glucose POC Glucose 153 H Hemoglobin A1c % Calcium Magnesium Total Bilirubin Direct Bilirubin Neonat Total Bilirubin Neonat Direct Bilirubin Neonat Indirect Bili AST ALT Alkaline Phosphatase Troponin I 0.205 NT-Pro-B Natriuret Pep Total Protein Albumin Triglycerides Cholesterol LDL Cholesterol Direct VLDL Cholesterol VLDL Cholesterol, Calc HDL Cholesterol TSH Free T4 Free T3 pg/mL Urine Color Urine Appearance Urine pH Ur Specific [place] Urine Protein Urine Glucose (UA) Urine Ketones Urine Blood Urine Nitrite Urine Bilirubin Urine Urobilinogen Ur Leukocyte Esterase Urine WBC (Auto) Urine RBC (Auto) Urine Bacteria (Auto) Squamous Epi Cells Auto Urine Mucus (Auto) Urine Ascorbic Acid Urine Opiates Screen Urine Methadone Screen Ur Barbiturates Screen Ur Phencyclidine Scrn Ur Amphetamines Screen U Benzodiazepines Scrn Urine Cocaine Screen U Marijuana (THC) Screen 07/01/19 07/01/19 07/01/19 06:10 08:53 11:06 WBC RBC Hgb Hct MCV MCH MCHC RDW Plt Count Lymph % (Auto) [place] % (Auto) Eos % (Auto) Baso % (Auto) Absolute Neuts (auto) Absolute Lymphs (auto) Absolute Monos (auto) Absolute Eos (auto) Absolute Basos (auto) Seg Neutrophils % PT INR Sodium 135.6 L Potassium 3.9 Chloride 100 Carbon Dioxide 25 Anion Gap 11 BUN 16 Creatinine 0.78 Est GFR ( Amer) > 60 Est GFR (MDRD) Non-Af > 60 Glucose 242 H POC Glucose 156 H 217 H Hemoglobin A1c % Calcium 8.9 Magnesium Total Bilirubin Direct Bilirubin Neonat Total Bilirubin Neonat Direct Bilirubin Neonat Indirect Bili AST ALT Alkaline Phosphatase Troponin I NT-Pro-B Natriuret Pep Total Protein Albumin Triglycerides Cholesterol LDL Cholesterol Direct VLDL Cholesterol VLDL Cholesterol, Calc HDL Cholesterol TSH Free T4 Free T3 pg/mL Urine Color Urine Appearance Urine pH Ur Specific [place] Urine Protein Urine Glucose (UA) Urine Ketones Urine Blood Urine Nitrite Urine Bilirubin Urine Urobilinogen Ur Leukocyte Esterase Urine WBC (Auto) Urine RBC (Auto) Urine Bacteria (Auto) Squamous Epi Cells Auto Urine Mucus (Auto) Urine Ascorbic Acid Urine Opiates Screen Urine Methadone Screen Ur Barbiturates Screen Ur Phencyclidine Scrn Ur Amphetamines Screen U Benzodiazepines Scrn Urine Cocaine Screen U Marijuana (THC) Screen 07/01/19 07/01/19 07/01/19 11:40 16:02 21:09 WBC RBC Hgb Hct MCV MCH MCHC RDW Plt Count Lymph % (Auto) [place] % (Auto) Eos % (Auto) Baso % (Auto) Absolute Neuts (auto) Absolute Lymphs (auto) Absolute Monos (auto) Absolute Eos (auto) Absolute Basos (auto) Seg Neutrophils % PT INR Sodium Potassium Chloride Carbon Dioxide Anion Gap BUN Creatinine Est GFR ( Amer) Est GFR (MDRD) Non-Af Glucose POC Glucose 271 H 139 H Hemoglobin A1c % Calcium Magnesium Total Bilirubin Direct Bilirubin Neonat Total Bilirubin Neonat Direct Bilirubin Neonat Indirect Bili AST ALT Alkaline Phosphatase Troponin I 0.124 NT-Pro-B Natriuret Pep Total Protein Albumin Triglycerides Cholesterol LDL Cholesterol Direct VLDL Cholesterol VLDL Cholesterol, Calc HDL Cholesterol TSH Free T4 Free T3 pg/mL Urine Color Urine Appearance Urine pH Ur Specific [place] Urine Protein Urine Glucose (UA) Urine Ketones Urine Blood Urine Nitrite Urine Bilirubin Urine Urobilinogen Ur Leukocyte Esterase Urine WBC (Auto) Urine RBC (Auto) Urine Bacteria (Auto) Squamous Epi Cells Auto Urine Mucus (Auto) Urine Ascorbic Acid Urine Opiates Screen Urine Methadone Screen Ur Barbiturates Screen Ur Phencyclidine Scrn Ur Amphetamines Screen U Benzodiazepines Scrn Urine Cocaine Screen U Marijuana (THC) Screen 07/02/19 07/02/19 07/02/19 04:38 04:38 06:22 WBC 4.3 RBC 4.45 Hgb 12.3 Hct 37.0 MCV 83 MCH 27.6 MCHC 33.2 RDW 14.9 H Plt Count 138 L Lymph % (Auto) 14.9 [place] % (Auto) 5.9 Eos % (Auto) 1.3 Baso % (Auto) 0.7 Absolute Neuts (auto) 3.3 Absolute Lymphs (auto) 0.6 Absolute Monos (auto) 0.3 Absolute Eos (auto) 0.1 Absolute Basos (auto) 0.0 Seg Neutrophils % 77.2 PT INR Sodium 135.0 L Potassium 3.6 Chloride 101 Carbon Dioxide 27 Anion Gap 7 BUN 12 Creatinine 0.68 Est GFR ( Amer) > 60 Est GFR (MDRD) Non-Af > 60 Glucose 160 H POC Glucose 154 H Hemoglobin A1c % Calcium 8.7 Magnesium Total Bilirubin 0.6 Direct Bilirubin 0.1 Neonat Total Bilirubin Not Reportable Neonat Direct Bilirubin Not Reportable Neonat Indirect Bili Not Reportable AST 22 ALT 24 Alkaline Phosphatase 68 Troponin I NT-Pro-B Natriuret Pep Total Protein 6.5 Albumin 3.7 Triglycerides Cholesterol LDL Cholesterol Direct VLDL Cholesterol VLDL Cholesterol, Calc HDL Cholesterol TSH Free T4 Free T3 pg/mL Urine Color Urine Appearance Urine pH Ur Specific [place] Urine Protein Urine Glucose (UA) Urine Ketones Urine Blood Urine Nitrite Urine Bilirubin Urine Urobilinogen Ur Leukocyte Esterase Urine WBC (Auto) Urine RBC (Auto) Urine Bacteria (Auto) Squamous Epi Cells Auto Urine Mucus (Auto) Urine Ascorbic Acid Urine Opiates Screen Urine Methadone Screen Ur Barbiturates Screen Ur Phencyclidine Scrn Ur Amphetamines Screen U Benzodiazepines Scrn Urine Cocaine Screen U Marijuana (THC) Screen 07/02/19 07/02/19 07/02/19 13:37 16:36 17:30 WBC RBC Hgb Hct MCV MCH MCHC RDW Plt Count Lymph % (Auto) [place] % (Auto) Eos % (Auto) Baso % (Auto) Absolute Neuts (auto) Absolute Lymphs (auto) Absolute Monos (auto) Absolute Eos (auto) Absolute Basos (auto) Seg Neutrophils % PT INR Sodium 133.0 L Potassium 3.7 Chloride 99 Carbon Dioxide 24 Anion Gap 10 BUN 12 Creatinine 0.68 Est GFR ( Amer) > 60 Est GFR (MDRD) Non-Af > 60 Glucose 217 H POC Glucose 202 H Hemoglobin A1c % Calcium 8.7 Magnesium Total Bilirubin Direct Bilirubin Neonat Total Bilirubin Neonat Direct Bilirubin Neonat Indirect Bili AST ALT Alkaline Phosphatase Troponin I 0.064 NT-Pro-B Natriuret Pep Total Protein Albumin Triglycerides Cholesterol LDL Cholesterol Direct VLDL Cholesterol VLDL Cholesterol, Calc HDL Cholesterol TSH Free T4 Free T3 pg/mL Urine Color Urine Appearance Urine pH Ur Specific [place] Urine Protein Urine Glucose (UA) Urine Ketones Urine Blood Urine Nitrite Urine Bilirubin Urine Urobilinogen Ur Leukocyte Esterase Urine WBC (Auto) Urine RBC (Auto) Urine Bacteria (Auto) Squamous Epi Cells Auto Urine Mucus (Auto) Urine Ascorbic Acid Urine Opiates Screen Urine Methadone Screen Ur Barbiturates Screen Ur Phencyclidine Scrn Ur Amphetamines Screen U Benzodiazepines Scrn Urine Cocaine Screen U Marijuana (THC) Screen 07/02/19 21:20 WBC RBC Hgb Hct MCV MCH MCHC RDW Plt Count Lymph % (Auto) [place] % (Auto) Eos % (Auto) Baso % (Auto) Absolute Neuts (auto) Absolute Lymphs (auto) Absolute Monos (auto) Absolute Eos (auto) Absolute Basos (auto) Seg Neutrophils % PT INR Sodium Potassium Chloride Carbon Dioxide Anion Gap BUN Creatinine Est GFR ( Amer) Est GFR (MDRD) Non-Af Glucose POC Glucose 160 H Hemoglobin A1c % Calcium Magnesium Total Bilirubin Direct Bilirubin Neonat Total Bilirubin Neonat Direct Bilirubin Neonat Indirect Bili AST ALT Alkaline Phosphatase Troponin I NT-Pro-B Natriuret Pep Total Protein Albumin Triglycerides Cholesterol LDL Cholesterol Direct VLDL Cholesterol VLDL Cholesterol, Calc HDL Cholesterol TSH Free T4 Free T3 pg/mL Urine Color Urine Appearance Urine pH Ur Specific [place] Urine Protein Urine Glucose (UA) Urine Ketones Urine Blood Urine Nitrite Urine Bilirubin Urine Urobilinogen Ur Leukocyte Esterase Urine WBC (Auto) Urine RBC (Auto) Urine Bacteria (Auto) Squamous Epi Cells Auto Urine Mucus (Auto) Urine Ascorbic Acid Urine Opiates Screen Urine Methadone Screen Ur Barbiturates Screen Ur Phencyclidine Scrn Ur Amphetamines Screen U Benzodiazepines Scrn Urine Cocaine Screen U Marijuana (THC) Screen Chest X-Ray 06/30/19 04:59 IMPRESSION: No acute cardiopulmonary abnormality The patient's 2 EKGs show sinus rhythm. Within normal limits. Impression/RECOMMENDATION: 1. Elevated troponin I: This is trended down. This is secondary to supply demand mismatch, and no definite evidence of non-ST elevation [place]. Treat the patient underlying causes which are uncontrolled hypertension, and possibly paroxysmal atrial fibrillation., And acute exacerbation of COPD. Hence would not treat this as a non-ST elevation [place]. We will recheck the patient is EKG in the a.m. and also troponin I in the a.m. Note that the patient's 5:30 PM troponin I is negative at 0.064. 2. Paroxysmal atrial fibrillation: From her history it seems that the patient has a history of paroxysmal palpitations, her description of paroxysmal palpitations. The patient's corrected Yousif Vasc 2 score is 4(age, hypertension, diabetes mellitus, and female gender. One point for each of these and hence total comes sums up to 4]. Chronic anticoagulation is indicated. We will discuss with the patient the patient;s regarding chronic anticoagulation. In the meantime we will continue the patient on Lovenox at full dose. Note that the patient's symptoms of chest pain when her atrial fibrillation during the stress test was at a rate of 160 bpm, and also the patient was hypertensive. Will increase the patient's Lopressor to 50 mg p.o. twice daily. Note I have stopped the patient's Coreg since the patient has COPD, and Lopressor will be better tolerated than Coreg. 3.History of hypertension with hypertensive spikes: Needs adjustment of her blood pressure medications. Mentioned earlier will increase the patient's Lopressor. Will start the patient on amlodipine at 2.5 mg p.o. every 12 hours and increase as tolerated. We will stop the patient's IV hydralazine as needed, and use IV Vasotec 2.5 mg IV every 6 hours as needed for blood pressure above 160 systolic or diastolic above 96. This has been discussed with the nurses. 4. COPD with acute exacerbation: Improving with current treatment. 5. Patient with negative stress test in spite of her paroxysmal atrial fibrillation, uncontrolled blood pressure. Management plan discussed with attending provider on the case. Medications adjusted. Medical decision making is of high complexity. 60 minutes spent on this patient with more than 50% of time spent direct patient care. Will follow
--- NOTE | 2019-07-03 00:44 | DRAGON STRESS TEST REPORT ---
Intravenous Lexiscan Cardiolite stress test using single photon emmision computerized tomography. Date of procedure: 07/02/2019.Ordering Provider: Dr. Champion. Patient's status: In Patient. Indication: Chest pain, uncontrolled hypertension, and elevated troponin levels.. Coronary risk factors: Age, hypertension, diabetes mellitus, dyslipidemia, and recently quit smoking. Resting EKG: Sinus Rhythm. EKG Within Normal Limits. Stress EKG: No changes of ischemia. The patient soon after injection of the Lexiscan and the Cardiolite complained of shortness of breath and chest burning. She developed atrial fibrillation with a ventricular response the highest being 163 bpm. Her systolic blood pressure was also elevated in about 200. The patient's symptoms continued in spite of her drinking Pepsi. The patient initially was given verapamil 5 mg IV push. Subsequently the patient was also given Lopressor 5 mg IV push. She continued to be in atrial fibrillation with rapid ventricular response. After she received 10 mg of IV push Cardizem she converted to sinus rhythm. The chest pain dissipated. The patient was started on Cardizem drip at 2.5 mg/h. She then subsequently had her stress imaging done. The patient was asked to be transferred to [facility] on telemetry. We will recheck the patient is EKG later and also we will recheck the patient's troponin levels later. This has been discussed with the patient is patient's . Reason for termination: Protocol. Conclusions: Normal EKG and hemodynamic response, with rapid atrial fibrillation development due to to IV Lexiscan. Nuclear data: At rest the patient was given 7.92 millicuries of technetium 99m sestamibi injected intravenously. As per protocol rest non gated SPECT images were obtained. Subsequently the patient was given intravenous Lexiscan at a dose of 0.4 mg in 5 mL intravenously, followed by flush with normal saline. Subsequently the stress dose of 36.9 millicuries of technetium 99m sestamibi was injected intravenously. As per protocol stress gated images were obtained. Nuclear interpretation: Review of images showed that all segments of the myocardium had normal perfusion at rest, and normal perfusion post stress with IV Lexiscan. All segments of the myocardium had normal motion, contraction, and thickening by gated study. T. I D. ratio was normal at 0.04. There is no transient ischemic dilatation of the left ventricle. Computer read rest, and stress left ventricular ejection fraction were 48 %, and 55 %, respectively. Visually both the stress and rest ejection fractions were normal, and greater than 55%. Conclusion: 1. There is no scintigraphic evidence of Lexiscan induced myocardial ischemia. 2. There is no scintigraphic evidence of myocardial infarction/scar. 3. Development of paroxysmal atrial fibrillation, with medication subsequently converted to sinus rhythm.. Recommendations: We will monitor the patient's rhythm in the IMCU on telemetry. Will get serial EKGs and enzymes. Aggressive risk factor modification, and treating the underlying co- morbidities. MTDD
[2019-07-03 05:09] LABS: ABSOLUTE LYMPHOCYTES (AUTO) 0.8 10^3/uL (0.5-4.7); ABSOLUTE MONOCYTES (AUTO) 0.3 10^3/uL (0.1-1.4); ABSOLUTE NEUT (AUTO) 2.6 10^3/uL (1.7-8.2); BASOPHILS % (AUTO) 0.6 % (0-2); HEMATOCRIT 36.6 % (36.0-47.0); HEMOGLOBIN 12.1 g/dL (12.0-15.5); LYMPHOCYTES % (AUTO) 21.8 % (13-45); MEAN CORPUSCULAR HEMOGLOBIN 27.6 pg (27.0-33.4); MEAN CORPUSCULAR VOLUME 84 fl (80-97); MONOCYTES % (AUTO) 8.9 % (3-13); PLATELET COUNT 129 10^3/uL (150-450); RED BLOOD COUNT 4.39 10^6/uL (3.72-5.28); RED CELL DISTRIBUTION WIDTH 14.9 % (11.5-14.0); SEGMENTED NEUTROPHILS % (AUTO) 67.7 % (42-78); TOTAL CELLS COUNTED % (AUTO) 100 %; WHITE BLOOD COUNT 3.8 10^3/uL (4.0-10.5)
[2019-07-03] MEDS: PANTOPRAZOLE SODIUM 40 MG TABLET.DR PO SCH (05:18)
[2019-07-03] MEDS: NORMAL SALINE 1000 ML 1,000 ML IV PRN (05:29)
[2019-07-03 05:33] LABS: ALBUMIN 3.6 g/dL (3.5-5.0); ALKALINE PHOSPHATASE 60 U/L (38-126); ANION GAP 9 (5-19); ASPARTATE AMINO TRANSFERASE 37 U/L (14-36); BILIRUBIN,DIRECT 0.2 mg/dL (0.0-0.4); BILIRUBIN,TOTAL 0.5 mg/dL (0.2-1.3); BLOOD UREA NITROGEN 10 mg/dL (7-20); CALCIUM 8.7 mg/dL (8.4-10.2); CARBON DIOXIDE 26 mmol/L (22-30); CHLORIDE 100 mmol/L (98-107); GLUCOSE 146 mg/dL (75-110); POTASSIUM 3.6 mmol/L (3.6-5.0); TOTAL PROTEIN 6.1 g/dL (6.3-8.2)
[2019-07-03] MEDS: IPRATROPIUM/ALBUTEROL 0.5-2.5 MG/3 ML AMPUL NEB SCH ×2 (08:04→14:14)
--- NOTE | 2019-07-03 08:49 | EKG REPORT ---
SEVERITY:- NORMAL ECG - SINUS RHYTHM : Confirmed by: Kishan Huber 03-Jul-2019 08:49:08
[2019-07-03] MEDS: INSULIN LISPRO 100 UNIT/ML 3 ML VIAL SUBCUT SCH ×2 (08:50→12:35)
--- NOTE | 2019-07-03 08:51 | EKG REPORT ---
SEVERITY:- ABNORMAL ECG - SINUS RHYTHM PROBABLE LVH WITH SECONDARY REPOL ABNRM : Confirmed by: Kishan Huber 03-Jul-2019 08:49:13
[2019-07-03] MEDS: LISINOPRIL 10 MG TABLET PO SCH (09:09)
[2019-07-03] MEDS: ENOXAPARIN SODIUM INJ 80 MG/0.8 ML DISP.SYRIN SUBCUT SCH (09:09)
[2019-07-03] MEDS: DOCUSATE SODIUM 100 MG CAPSULE PO SCH (09:10)
[2019-07-03] MEDS: AMLODIPINE BESYLATE 2.5 MG TABLET PO SCH (09:10)
[2019-07-03] MEDS: CLOPIDOGREL BISULFATE 75 MG TABLET PO SCH (09:10)
[2019-07-03] MEDS: METOPROLOL TARTRATE 50 MG TABLET PO SCH (09:10)
[2019-07-03] MEDS: GUAIFENESIN/D-METHORPHAN (200-20 MG) SYRUP 10 ML PO SCH ×2 (09:11→13:46)
[2019-07-03] MEDS ORDERED: AMLODIPINE BESYLATE 5 MG TABLET PO SCH (10:00)
[2019-07-03] MEDS ORDERED: ALBUTEROL SULFATE HFA (90 MCG/PUFF) 200 PUFF/8.5 GM MDI IH SCH (10:00)
[2019-07-03] MEDS ORDERED: AMLODIPINE BESYLATE 2.5 MG TABLET PO SCH (10:00)
[2019-07-03] MEDS ORDERED: LISINOPRIL 10 MG TABLET PO SCH (10:00)
[2019-07-03] MEDS ORDERED: FLUTICASONE/VILANTEROL 200-25 MCG/DOSE IH SCH (10:00)
[2019-07-03] MEDS ORDERED: AMLODIPINE BESYLATE 5 MG TABLET PO ONE (13:30)
[2019-07-03 15:01] VITALS: BP 149/71
--- NOTE | 2019-07-03 16:59 | PDOC DISCHARGE SUMMARY ---
Impression - Admit/DC Date/PCP Admission Date/Primary Care Provider: 06/30/19 10:24 LYNNE KEANE MD Discharge Date: 07/03/19 - Discharge Diagnosis (1) Atrial fibrillation Is this a current diagnosis for this admission?: Yes (2) Chest pain Is this a current diagnosis for this admission?: Yes (3) Hypertensive emergency Is this a current diagnosis for this admission?: Yes (4) Elevated troponin Is this a current diagnosis for this admission?: Yes (5) Diabetes Is this a current diagnosis for this admission?: Yes (6) COPD (chronic obstructive pulmonary disease) Is this a current diagnosis for this admission?: Yes - Additional Information Resuscitation Status: Full Code Discharge Diet: Cardiac, Diabetic Discharge Activity: Activity As Tolerated, Balance Activity w/Rest Referrals: RAMON CORONA MD [ACTIVE STAFF] - DIANE COLLIER NP [NURSE PRACTITIONER] - Follow up as needed Prescriptions: Apixaban [Eliquis 5 mg Tablet] 5 mg PO BID 30 Days #60 tablet Metformin HCl [Glucophage] 1,000 mg PO BID 30 Days #60 tablet Atorvastatin Calcium [Lipitor 40 mg Tablet] 40 mg PO QHS 30 Days #30 tablet Metoprolol Tartrate [Lopressor 50 mg Tablet] 50 mg PO BID 30 Days #60 tablet Amlodipine Besylate [Norvasc 10 mg Tablet] 10 mg PO DAILY 30 Days #30 tablet Levalbuterol Tartrate [Xopenex Hfa] 15 gm IH Q6 30 Days #2 [email or web address] Home Medications: Fluticasone/Salmeterol [Advair 250-50 Diskus 14 Dose/Diskus] 1 puff IH Q12 0 06/30/19 Lisinopril [Prinivil 40 mg Tablet] 40 mg PO DAILY 06/30/19 Amlodipine Besylate [Norvasc 10 mg Tablet] 10 mg PO DAILY 30 Days #30 tablet 07/03/19 Apixaban [Eliquis 5 mg Tablet] 5 mg PO BID 30 Days #60 tablet 07/03/19 Atorvastatin Calcium [Lipitor 40 mg Tablet] 40 mg PO QHS 30 Days #30 tablet 07/03/19 Levalbuterol Tartrate [Xopenex Hfa] 15 gm IH Q6 30 Days #2 hfa.[email or web address] 07/03/19 Metformin HCl [Glucophage] 1,000 mg PO BID 30 Days #60 tablet 07/03/19 Metoprolol Tartrate [Lopressor 50 mg Tablet] 50 mg PO BID 30 Days #60 tablet 07/03/19 History of Present Illiness History of Present Illness: ERROL MAN is a 69 year old female past medical history of diabetes, emphysema, hypertension, presented to ED complaining of chest pain. As per patient she has been nonproductive coughing for the last several days " I got it from my grandkids there coughing too", at 2 AM last night she was using her albuterol, started coughing, suddenly developed chest pain, had a panic attack, called EMS. Chest pain is very nonspecific, as well as sharp, stabbing, then turned into a burning sensation and eventually feeling pressure, pain was more epigastric radiating to the left side, and radiating to the left upper extremity, pain was constant until she was given nitroglycerin by EMS. In ED she was found to have BP of >200s, was given lisinopril which improved her pressure, EKG no acute changes, CBC CMP WNL, initial troponin negative but the repeat troponin came back 0.13. Hospitalist was consulted for admission. Hospital Course Hospital Course: (1) Atrial fibrillation Paroxysmal A. fib. CHADS score 34 Patient developed A. fib RVR during nuclear stress test. Transfered to [facility], started on Cardizem drip, and therapeutic Lovenox. Converted back to sinus rhythm. Was started on p.o. beta-blockers and Eliquis. Cardiology on board. Please refer to note. Follow-up as outpatient with Dr. Corona (2) Chest pain Noncardiac. Resolved. Left chest tenderness to palpation on admission. Troponins 0.012, 0.13, 0.26, 0.33, 0.20, 0.06, 0.04 Was admitted to telemetry, started on antiplatelets, beta-blockers, antiplatelets, low molecular weight heparin, beta-blockers, ROSE, statins. Cardiology was consulted. Stress test was negative for any reversible ischemia or any GA. (3) Hypertensive emergency History of hypertension, patient reporting noncompliance. Was noted to have a blood pressure of more than 200s on admission. In Ed was given 1 dose of lisinopril and started on nitro drip with blood pressure improving to 140s. Patient was transitioned to lisinopril 40 mg p.o. daily, metoprolol 50 mg p.o. daily, amlodipine 10 mg p.o. daily and PRN IV hydralazine. She was discharged on lisinopril 40 mg p.o. daily, metoprolol 50 mg p.o. daily, amlodipine 10 mg p.o. daily. Patient SBP on discharge in 140s, patient has a history of noncompliance and already started on daily antihypertensive meds I did not want to add another one. I have encouraged her to follow-up with PCP as soon as possible for reconciliation of her BP meds. I have asked the floor shake maker to make an appointment for her with PCP. (4) Elevated troponin Likely NSTEMI type II demand mismatch due to emergency hypertension/COPD/paroxysmal A. fib. Plan as above. (5) Diabetes Not controlled. Hemoglobin A1c 9.0. Takes metformin at home. History of noncompliance. Started on diabetic diet, sliding scale insulin, pre-meal insulin, long-acting insulin, Accu-Chek, hypoglycemia protocol. Discharged on metformin thousand milligrams p.o. twice daily. Patient educated about importance of medication adherence and complications of diabetes. (6) COPD (chronic obstructive pulmonary disease) Not on home O2. Former smoker. History of 50 years PPD smoking. Quit 6 months ago. Was started on pulmonary toileting, incentive spirometry, LMA, LABA, ICS, flutter valve. Takes Advair and albuterol at home. Her albuterol was switched to Xopenex due to underlying A. fib. (7) Hyperlipidemia ASCVD 49%. Started on high intensity statins. Encouraged to follow-up with PCP in 2 weeks for evaluation of liver chemistries. Physical Exam Vital Signs: Temp Pulse Resp BP Pulse Ox 99.0 F 75 16 149/71 H 95 07/03/19 15:53 07/03/19 15:53 07/03/19 15:53 07/03/19 15:53 07/03/19 15:53 Intake & Output 07/02/19 07/03/19 07/04/19 06:59 06:59 06:59 Intake Total 1979 1014 682 Balance 1979 1014 682 Weight 82.9 kg 84.4 kg General appearance: PRESENT: no acute distress, obese, well-developed, well- nourished Head exam: PRESENT: atraumatic, normocephalic Eye exam: PRESENT: conjunctiva pink, EOMI, PERRLA. ABSENT: scleral icterus Ear exam: PRESENT: normal external ear exam Mouth exam: PRESENT: moist, tongue midline Neck exam: ABSENT: carotid bruit, JVD, lymphadenopathy, thyromegaly Respiratory exam: PRESENT: clear to auscultation cally. ABSENT: rales, rhonchi, wheezes Cardiovascular exam: PRESENT: RRR. ABSENT: diastolic murmur, rubs, systolic murmur Pulses: PRESENT: normal dorsalis pedis pul Vascular exam: PRESENT: normal capillary refill GI/Abdominal exam: PRESENT: normal bowel sounds, soft. ABSENT: distended, guarding, mass, organolmegaly, rebound, tenderness Rectal exam: PRESENT: deferred Extremities exam: PRESENT: full ROM. ABSENT: calf tenderness, clubbing, pedal edema Neurological exam: PRESENT: alert, awake, oriented to person, oriented to place, oriented to time, oriented to situation, CN II-XII grossly intact. ABSENT: motor sensory deficit Psychiatric exam: PRESENT: appropriate affect, normal mood. ABSENT: homicidal ideation, suicidal ideation Skin exam: PRESENT: dry, intact, warm. ABSENT: cyanosis, rash Results Laboratory Results: WBC 3.8 10^3/uL (4.0-10.5) L 07/03/19 04:47 RBC 4.39 10^6/uL (3.72-5.28) 07/03/19 04:47 Hgb 12.1 g/dL (12.0-15.5) 07/03/19 04:47 Hct 36.6 % (36.0-47.0) 07/03/19 04:47 MCV 84 fl (80-97) 07/03/19 04:47 MCH 27.6 pg (27.0-33.4) 07/03/19 04:47 MCHC 33.0 g/dL (32.0-36.0) 07/03/19 04:47 RDW 14.9 % (11.5-14.0) H 07/03/19 04:47 Plt Count 129 10^3/uL (150-450) L 07/03/19 04:47 Lymph % (Auto) 21.8 % (13-45) 07/03/19 04:47 [place] % (Auto) 8.9 % (3-13) 07/03/19 04:47 Eos % (Auto) 1.0 % (0-6) 07/03/19 04:47 Baso % (Auto) 0.6 % (0-2) 07/03/19 04:47 Absolute Neuts (auto) 2.6 10^3/uL (1.7-8.2) 07/03/19 04:47 Absolute Lymphs (auto) 0.8 10^3/uL (0.5-4.7) 07/03/19 04:47 Absolute Monos (auto) 0.3 10^3/uL (0.1-1.4) 07/03/19 04:47 Absolute Eos (auto) 0.0 10^3/uL (0.0-0.6) 07/03/19 04:47 Absolute Basos (auto) 0.0 10^3/uL (0.0-0.2) 07/03/19 04:47 Seg Neutrophils % 67.7 % (42-78) 07/03/19 04:47 PT 12.4 SEC (11.4-15.4) 06/30/19 04:15 INR 0.92 06/30/19 04:15 Sodium 134.8 mmol/L (137-145) L 07/03/19 04:47 Potassium 3.6 mmol/L (3.6-5.0) 07/03/19 04:47 Chloride 100 mmol/L (98-107) 07/03/19 04:47 Carbon Dioxide 26 mmol/L (22-30) 07/03/19 04:47 Anion Gap 9 (5-19) 07/03/19 04:47 BUN 10 mg/dL (7-20) 07/03/19 04:47 Creatinine 0.72 mg/dL (0.52-1.25) 07/03/19 04:47 Est GFR ( Amer) > 60 (>60) 07/03/19 04:47 Est GFR (MDRD) Non-Af > 60 (>60) 07/03/19 04:47 Glucose 146 mg/dL (75-110) H 07/03/19 04:47 POC Glucose 174 mg/dL (70-110) H 07/03/19 15:51 Hemoglobin A1c % 9.0 % (4.7-6.0) H 06/30/19 04:15 Calcium 8.7 mg/dL (8.4-10.2) 07/03/19 04:47 Magnesium 1.6 mg/dL (1.6-2.3) 06/30/19 11:34 Magnesium Cancelled 06/30/19 11:34 Total Bilirubin 0.5 mg/dL (0.2-1.3) 07/03/19 04:47 Direct Bilirubin 0.2 mg/dL (0.0-0.4) 07/03/19 04:47 Neonat Total Bilirubin Not Reportable 07/03/19 04:47 Neonat Direct Bilirubin Not Reportable 07/03/19 04:47 Neonat Indirect Bili Not Reportable 07/03/19 04:47 AST 37 U/L (14-36) H 07/03/19 04:47 ALT 28 U/L (<35) 07/03/19 04:47 Alkaline Phosphatase 60 U/L (38-126) 07/03/19 04:47 Troponin I 0.043 ng/mL 07/03/19 04:47 NT-Pro-B Natriuret Pep 280 pg/mL (5-900) 06/30/19 04:15 Total Protein 6.1 g/dL (6.3-8.2) L 07/03/19 04:47 Albumin 3.6 g/dL (3.5-5.0) 07/03/19 04:47 Triglycerides 166 mg/dL (<150) H 06/30/19 11:34 Triglycerides Cancelled 06/30/19 11:34 Cholesterol 217.73 mg/dL (0-200) H 06/30/19 11:34 Cholesterol Cancelled 06/30/19 11:34 LDL Cholesterol Direct 193 mg/dL (<100) H 06/30/19 11:34 LDL Cholesterol Direct Cancelled 06/30/19 11:34 VLDL Cholesterol 33.2 mg/dL (10-31) H 06/30/19 11:34 VLDL Cholesterol Cancelled 06/30/19 11:34 VLDL Cholesterol, Calc Cancelled 06/30/19 11:34 HDL Cholesterol 37 mg/dL (>40) L 06/30/19 11:34 HDL Cholesterol Cancelled 06/30/19 11:34 TSH 0.08 uIU/mL (0.47-4.68) L 06/30/19 11:34 Free T4 0.96 ng/dL (0.78-2.19) 06/30/19 11:34 Free T3 pg/mL 3.61 pg/mL (2.77-5.27) 06/30/19 11:34 Urine Color YELLOW 06/30/19 08:55 Urine Appearance CLEAR 06/30/19 08:55 Urine pH 5.0 (5.0-9.0) 06/30/19 08:55 Ur Specific [place] 1.022 06/30/19 08:55 Urine Protein 30 mg/dL (NEGATIVE) H 06/30/19 08:55 Urine Glucose (UA) >=500 mg/dL (NEGATIVE) H 06/30/19 08:55 Urine Ketones 20 mg/dL (NEGATIVE) H 06/30/19 08:55 Urine Blood NEGATIVE (NEGATIVE) 06/30/19 08:55 Urine Nitrite NEGATIVE (NEGATIVE) 06/30/19 08:55 Urine Bilirubin NEGATIVE (NEGATIVE) 06/30/19 08:55 Urine Urobilinogen NEGATIVE mg/dL (<2.0) 06/30/19 08:55 Ur Leukocyte Esterase NEGATIVE (NEGATIVE) 06/30/19 08:55 Urine WBC (Auto) 3 /HPF 06/30/19 08:55 Urine RBC (Auto) 1 /HPF 06/30/19 08:55 Urine Bacteria (Auto) TRACE /HPF 06/30/19 08:55 Squamous Epi Cells Auto 1 /HPF 06/30/19 08:55 Urine Mucus (Auto) RARE /LPF 06/30/19 08:55 Urine Ascorbic Acid NEGATIVE (NEGATIVE) 06/30/19 08:55 Urine Opiates Screen UNCONFIRMED POSITIVE 06/30/19 08:55 Urine Methadone Screen NEGATIVE 06/30/19 08:55 Ur Barbiturates Screen NEGATIVE 06/30/19 08:55 Ur Phencyclidine Scrn NEGATIVE 06/30/19 08:55 Ur Amphetamines Screen NEGATIVE 06/30/19 08:55 U Benzodiazepines Scrn NEGATIVE 06/30/19 08:55 Urine Cocaine Screen NEGATIVE 06/30/19 08:55 U Marijuana (THC) Screen NEGATIVE 06/30/19 08:55 0906/30/19 06/30/19 04:15 07:23 11:34 Troponin I < 0.012 0.134 0.261 NT-Pro-B Natriuret Pep 280 06/30/19 07/01/19 07/01/19 17:28 05:15 11:40 Troponin I 0.331 0.205 0.124 NT-Pro-B Natriuret Pep 07/02/19 07/03/19 17:30 04:47 Troponin I 0.064 0.043 NT-Pro-B Natriuret Pep Impressions: Chest X-Ray 06/30/19 04:59 IMPRESSION: No acute cardiopulmonary abnormality copyright 2010 [employer]- All Rights Reserved Stroke Is this a Stroke Patient?: No Acute Heart Failure - Is this a Heart Failure Patient?: No
[2019-07-03] MEDS ORDERED: APIXABAN 5 MG TABLET PO SCH (18:00)
--- NOTE | 2019-07-03 22:00 | Progress Note ---
Provider Note Provider Note: CARDIOLOGY PROGRESS NOTE by Dr. Xin Mosqueda on 07/03/2019. Subjective: The patient is off the Cardizem drip and remains in sinus rhythm. Her blood pressure is much improved. She denies any chest pain or discomfort. There is no recurrence of atrial fibrillation. There is no ventricular arrhythmia seen on the monitor. The patient has no wheezing or cough. There is no shortness of breath PND orthopnea. COPD is back to baseline. The patient has no contraindication for long-term anticoagulation. The patient's corrected Yousif vasc 2 score is 4, hence definitely needs chronic anticoagulation. Physical EXAMINATION: The patient is mildly overweight. She is well groomed. In no acute distress. Selected Entries 07/03/19 12:30 Temperature 99.0 F Temperature Oral Source Pulse Rate 72 Respiratory 16 Rate Blood Pressure 155/66 H Blood Pressure 95 Mean BP Location Right Arm BP Position Sitting O2 Sat by Pulse 95 Oximetry Oxygen Delivery Room Air Method HEAD: Head is atraumatic and normocephalic. EYES: Pupils are equal round regular reactive to light accommodation. Extraocular movements are normal, there is no conjunctival pallor, and no scleral icterus. EARS: Tympanic membranes are intact external auditory canals are clear. NOSE: There is no inflammation of the nasal mucous membrane there is no deviated nasal septum. MOUTH: Mucous membranes of mouth and tongue are moist, there is no ulcers in the mouth or tongue, and no bleeding from the gums. THROAT: There is no redness of the oropharynx, no exudate seen. SKIN: There is no petechia or ecchymosis. There is no rashes or lesions. NECK: Supple. There is no JVD. Carotids are equal there is no bruit. There is no lymphadenopathy. There is no goiter. Trachea central LUNGS: There is diminished air entry and prolonged expiration. Clear to auscultation bilaterally, no wheezes, rales or rhonchi. On percussion there is hyperresonance although there is no chest wall tenderness HEART: S1 and S2 are heard. S1 is of normal intensity, there is no S3 or S4 gallops. There is a systolic murmur the left sternal border and the apex. There is no rub. ABDOMEN: Normoactive bowel sounds, soft, nontender, no masses, no rebound, no guarding. There is no hepatosplenomegaly. EXTREMITIES: Femorals are slightly diminished. There is no femoral bruits. Leg pulses are diminished. There is no pedal edema. There is no DVT or cellulitis. There is no cyanosis or clubbing. There is no calf tenderness. NEUROLOGICAL the patient is awake alert oriented 3 with no focal deficits. PSYCHIATRIC: The patient judgment and insight are intact his affect is normal. Labs- All tests 24 hr 07/03/19 07/03/19 07/03/19 04:47 04:47 04:47 WBC 3.8 L RBC 4.39 Hgb 12.1 Hct 36.6 MCV 84 MCH 27.6 MCHC 33.0 RDW 14.9 H Plt Count 129 L Lymph % (Auto) 21.8 Mower % (Auto) 8.9 Eos % (Auto) 1.0 Baso % (Auto) 0.6 Absolute Neuts (auto) 2.6 Absolute Lymphs (auto) 0.8 Absolute Monos (auto) 0.3 Absolute Eos (auto) 0.0 Absolute Basos (auto) 0.0 Seg Neutrophils % 67.7 Sodium 134.8 L Potassium 3.6 Chloride 100 Carbon Dioxide 26 Anion Gap 9 BUN 10 Creatinine 0.72 Est GFR ( Amer) > 60 Est GFR (MDRD) Non-Af > 60 Glucose 146 H POC Glucose Calcium 8.7 Total Bilirubin 0.5 Direct Bilirubin 0.2 Neonat Total Bilirubin Not Reportable Neonat Direct Bilirubin Not Reportable Neonat Indirect Bili Not Reportable AST 37 H ALT 28 Alkaline Phosphatase 60 Troponin I 0.043 Total Protein 6.1 L Albumin 3.6 07/03/19 07/03/19 07/03/19 08:47 12:32 15:51 WBC RBC Hgb Hct MCV MCH MCHC RDW Plt Count Lymph % (Auto) Mower % (Auto) Eos % (Auto) Baso % (Auto) Absolute Neuts (auto) Absolute Lymphs (auto) Absolute Monos (auto) Absolute Eos (auto) Absolute Basos (auto) Seg Neutrophils % Sodium Potassium Chloride Carbon Dioxide Anion Gap BUN Creatinine Est GFR ( Amer) Est GFR (MDRD) Non-Af Glucose POC Glucose 139 H 191 H 174 H Calcium Total Bilirubin Direct Bilirubin Neonat Total Bilirubin Neonat Direct Bilirubin Neonat Indirect Bili AST ALT Alkaline Phosphatase Troponin I Total Protein Albumin Chest X-Ray 06/30/19 04:59 IMPRESSION: No acute cardiopulmonary abnormality EKG: Sinus rhythm. Probable left ventricular hypertrophy. No acute changes. Impression/RECOMMENDATION: 1. Elevated troponin I: This is trended down. This is secondary to supply demand mismatch, and no definite evidence of non-ST elevation LA. Treat the patient underlying causes which are uncontrolled hypertension, and possibly paroxysmal atrial fibrillation., And acute exacerbation of COPD. Hence would not treat this as a non-ST elevation LA. We will recheck the patient is EKG in the a.m. and also troponin I in the a.m. Note that the patient's 5:30 PM troponin I is negative at 0.064. 2. Paroxysmal atrial fibrillation: From her history it seems that the patient has a history of paroxysmal palpitations, her description of paroxysmal palpitations. The patient's corrected Yousif Vasc 2 score is 4 chronic anticoagulation is indicated. We will discuss with the patient the patient;s regarding chronic anticoagulation. In the meantime we will continue the patient on Lovenox at full dose. Note that the patient's symptoms of chest pain when her atrial fibrillation during the stress test was at a rate of 160 bpm, and also the patient was hypertensive. Discussed the benefits and bleeding complications of anticoagulants. Discussed Coumadin versus the newer oral anticoagulation agents. The patient after discussions of the risks and benefits and the pros and cons of both therapies the wrist with Coumadin and wishes to starting the newer anticoagulation agents. The patient and the agreed to be on Eliquis. Hence we will start the patient Eliquis 5 mg p.o. twice daily and stop the patient's Lovenox. Also continue the patient on Lopressor 50 mg p.o. twice daily. The patient's amlodipine has been increased to 5 mg p.o. twice daily. Continue lisinopril at 40 mg p.o. daily. We will stop the patient Plavix since the patient is on Eliquis. The patient will be sent a 30-day event monitor to monitor the patient's heart rhythm is an outpatient. We will get an echocardiogram as an outpatient. The patient desires to follow-up with me. Contact numbers given. We will stop the patient's IV hydralazine as needed, and use IV Vasotec 2.5 mg IV every 6 hours as needed for blood pressure above 160 systolic or diastolic above 96. This has been discussed with the nurses. 4. COPD with acute exacerbation: Improving with current treatment. 5. Patient with negative stress test in spite of her paroxysmal atrial fibrillation, in the setting of uncontrolled blood pressure. Management plan discussed with attending provider on the case. Medications adjusted. Medical decision making is of high complexity. 40 minutes spent on this patient with more than 50% of time spent direct patient care. Will sign off. Will follow the patient in the office.
== END 2019-07-03 16:25 | disposition home or self-care (01) ==
LOC: ER 04:39 → INTOOBSV 10:24 → EH 10:24 → 4N 19:40 → 3W 07-02 12:51
PROVIDERS: ADMIT Internal Medicine; ATTEND Internal Medicine
DX: I16.1 Hypertensive emergency (principal); I48.0 Paroxysmal atrial fibrillation; E11.9 Type 2 diabetes mellitus without complications; I10 Essential (primary) hypertension; E78.5 Hyperlipidemia, unspecified; M19.90 Unspecified osteoarthritis, unspecified site; K21.9 Gastro-esophageal reflux disease without esophagitis; E66.01 Morbid (severe) obesity due to excess calories; R74.8 Abnormal levels of other serum enzymes; R07.2 Precordial pain; Z79.01 Long term (current) use of anticoagulants; Z79.84 Long term (current) use of oral hypoglycemic drugs; Z79.51 Long term (current) use of inhaled steroids; Z91.14 Patient's other noncompliance with medication regimen; Z87.891 Personal history of nicotine dependence; Z88.6 Allergy status to analgesic agent; Z88.0 Allergy status to penicillin; Z88.8 Allergy status to other drugs, medicaments and biological substances; Z68.29 Body mass index [BMI] 29.0-29.9, adult
CPT/HCPCS: 93005 ×4; 99291; 96365; 36415 ×4; 84439; 82962 ×4; 83735; 84443; 85025 ×4; 85610; 80048; 80053 ×3; 81001; 84484 ×4; 80307; 84481; 83036; 80061; 83880; 93017; 71045; 78452; 93010 ×4; 94640 ×4; G0378 ×5; A9500; J2785; J0360 ×2; J1815 ×4; J3490 ×11; J7030 ×2; J1650 ×2; J7620 ×4; Q9969